=== PATIENT | male | born 1965 | race Caucasian/White ===

== ENCOUNTER 2018-10-18 14:22 | Inpatient (IN) | payer BC, OTHER ==
[2018-10-18] MEDS ORDERED: SODIUM CHLORIDE 0.9% 1,000 ML IV ONE ×2 (14:40→16:21)
[2018-10-18] MEDS ORDERED: SODIUM CHLORIDE 0.9% 500 ML 500 ML IV ONE (14:40)
--- NOTE | 2018-10-18 14:54 | ED ---
Psych HPI <Rickie Campos - Last Filed: 10/18/18 18:05> - General Source: patient, police Mode of arrival: ambulatory <Guillermina Hagan - Last Filed: 10/18/18 18:36> - General Chief Complaint: Psychiatric Symptoms Stated Complaint: mental health Time Seen by Provider: 10/18/18 14:31 - History of Present Illness Initial Comments: 53-year-old male past medical history of hypertension, previous alcohol abuse with history of cirrhosis of the liver presenting today as brought in by family for behavioral abnormalities. Family states the past 3 weeks patient has been very paranoid and has had bizarre conversations. The patient has been speaking of serpents, knocking on random doors. He has been speaking very religiously wh ich is unlike the patient. They feel he is delusional. He tore of the carpeting in their home and set it in front of the home, they are unsure why he is doing these things. Today patient locked himself in the bathroom for 5 hours, prompting family to bring him to the ER. Pt did have episode of vomiting today. Patient has no complaints upon arrival, keenly responsive, alert oriented x3. HR 135 and BP elevated. Pt is cooperative, no signs of agitation. Family will petition patient for psychiatric evaluation/admission pending medical clearance. Family has noted significant weight loss in the past month. Family states patient has not had alcohol in the past year. Family states patient does have history of depression and has been on psychiatric medications the past however patient is noncompliant. (Guillermina Hagan) - Related Data Home Medications Medication Instructions Recorded Confirmed No Known Home Medications 10/18/18 10/18/18 Allergies Allergy/AdvReac Type Severity Reaction Status Date / Time No Known Allergies Allergy Verified 10/18/18 16:56 Review of Systems ROS Other: All systems not noted in ROS Statement are negative. <Rickie Campos - Last Filed: 10/18/18 18:05> ROS Other: All systems not noted in ROS Statement are negative. <Guillermina Hagan - Last Filed: 10/18/18 18:36> ROS Statement: Those systems with pertinent positive or pertinent negative responses have been documented in the HPI. Past Medical History Past Medical History: Hypertension History of Any Multi-Drug Resistant Organisms: None Reported Past Surgical History: Orthopedic Surgery Past Psychological History: No Psychological Hx Reported Smoking Status: Current every day smoker Past Alcohol Use History: None Reported Past Drug Use History: Marijuana <Guillermina Hagan - Last Filed: 10/18/18 18:36> General Exam Limitations: no limitations <Guillermina Hagan - Last Filed: 10/18/18 18:36> - General Exam Comments Initial Comments: General: The patient is awake and alert, in no distress. Patient appears thin. Eye: +3 mm pupils are equal, round and reactive to light, extra-ocular movements are intact. No nystagmus. There is normal conjunctiva bilaterally. No signs of icterus. Ears, nose, mouth and throat: There are moist mucous membranes and no oral lesions. Neck: The neck is supple, there is no tenderness or JVD. Cardiovascular: There is a increased rate and rhythm. No murmur, rub or gallop is appreciated. Respiratory: Lungs are clear to auscultation, respirations are non-labored, breath sounds are equal. No wheezes, stridor, rales, or rhonchi. Gastrointestinal: Soft, non-distended, non-tender abdomen without masses or organomegaly noted. There is no rebound or guarding present. No CVA tenderness. Bowel sounds are unremarkable. Musculoskeletal: Normal ROM, no tenderness. Strength 5/5. Sensation intact. Radial pulses equal bilaterally 2+. Neurological: A&O x 3. CN II-XII intact, There are no obvious motor or sensory deficits. Coordination appears grossly intact. Speech is normal. Skin: Skin is warm and dry and no rashes or lesions are noted. Psychiatric: Cooperative. (Guillermina Hagan) Course <Guillermina Hagan - Last Filed: 10/18/18 18:36> Vital Signs 10/18/18 10/18/18 10/18/18 14:24 15:21 15:30 Temperature 97.4 F L Pulse Rate 135 H 122 H 113 H Respiratory 18 17 18 Rate Blood Pressure 164/112 163/106 O2 Sat by Pulse 98 99 98 Oximetry 10/18/18 10/18/18 10/18/18 15:40 15:50 16:00 Temperature Pulse Rate 113 H 116 H Respiratory 23 8 L 11 L Rate Blood Pressure 158/110 172/108 172/108 O2 Sat by Pulse 99 97 97 Oximetry 10/18/18 10/18/18 10/18/18 16:10 16:20 16:30 Temperature Pulse Rate 115 H 126 H Respiratory 17 15 28 H Rate Blood Pressure 154/110 161/108 161/108 O2 Sat by Pulse 97 97 96 Oximetry 10/18/18 10/18/18 10/18/18 16:40 16:50 17:00 Temperature Pulse Rate 121 H 121 H 110 H Respiratory 18 21 9 L Rate Blood Pressure 186/103 160/124 160/124 O2 Sat by Pulse 97 97 98 Oximetry 10/18/18 10/18/18 10/18/18 17:10 17:20 17:30 Temperature Pulse Rate 123 H 110 H 120 H Respiratory 7 L 14 13 Rate Blood Pressure 146/101 142/94 142/94 O2 Sat by Pulse 97 96 97 Oximetry 10/18/18 10/18/18 10/18/18 17:40 17:50 18:00 Temperature Pulse Rate 111 H 112 H 108 H Respiratory 47 H 18 13 Rate Blood Pressure 165/94 164/127 164/127 O2 Sat by Pulse 97 96 97 Oximetry 10/18/18 18:10 Temperature Pulse Rate 108 H Respiratory 18 Rate Blood Pressure 153/106 O2 Sat by Pulse 97 Oximetry - Reevaluation(s) Reevaluation #1: Patient was evaluated in person by attending provider Dr. Campos. He reviewed patient EKG and assessed patient. Pt AAOx3. Appearing well, lactic acid and urinalysis pending. 10/18/18 16:12 (Guillermina Hagan) Medical Decision Making - Lab Data Result diagrams: 10/18/18 15:00 10/18/18 15:00 <Rickie Campos - Last Filed: 10/18/18 18:05> - Lab Data Result diagrams: 10/18/18 15:00 10/18/18 15:00 <Guillermina Hagan - Last Filed: 10/18/18 18:36> - Medical Decision Making Patient case was discussed with Dr. Funez who felt the patient was appropriate for psychiatric admission despite tachycardia. Repeat lactic acid level was obtained with improvement of findings. (Rickie Campos) 53yo male presenting for psychosis. Pt family states he has had depression and takes medications usually however has been off of his medications for weeks. Pt has history of liver disease, states he has had cirrhosis in the past. Pt has not had ETOH to family knowledge in 1 year. Pt does not appear intoxicated upon arrival. Pt family complaints are delusional/paranoid thoughts, patient denies visual or auditory hallucinations. Pt is AAOx3 upon arrival, keenly alert, family and patient deny infectious symptoms knowledge. Physical examination unremarkable. No focal neurological deficits. No nuchal rigidity or meningeal irritation signs. No leukocytosis. No focal signs of infection. Urine unremarkable. CT brain wo contrast WNL. CXR WNL. Lungs clear. Pt appears well. Afebrile. Pt states he has home stressors otherwise ROS (-), pt petitioned by family. Pt was evaluated by attending provider Dr. Campos who reviewed EKG, and patient laboratory studies. Lactic acidosis present. Pt has history of ETOH abuse and liver cirrhosis. No abdominal distention. Pt appears dry on exam. Pt given IVF. Repeat lactic WNL. Pt continues to have elevated HR. Pt provided BP medications in the ER. Dr. Funez was contacted for medical admit for sustained tachycardia. He recommended psych admit with medicine on consult. Pt admitted to psychiatric floor after certified by Dr. Campos and evaluated by EPS. Dr. Campos is agreeable with admission to hospital with both psychiatric and further medical evaluation. Findings were discussed with family who are agreeable with admission. Pt does have pyschiatric history of depression and is off all medications. (Guillermina Hagan) - Lab Data Lab Results 10/18/18 10/18/18 10/18/18 Range/Units 15:00 15:00 15:00 WBC 9.3 (3.8-10.6) k/uL RBC 4.54 (4.30-5.90) m/uL Hgb 13.8 (13.0-17.5) gm/dL Hct 43.1 (39.0-53.0) % MCV 94.9 (80.0-100.0) fL MCH 30.5 (25.0-35.0) pg MCHC 32.1 (31.0-37.0) g/dL RDW 13.7 (11.5-15.5) % Plt Count 307 (150-450) k/uL Neutrophils % 80 % Lymphocytes % 14 % Monocytes % 4 % Eosinophils % 0 % Basophils % 0 % Neutrophils # 7.4 (1.3-7.7) k/uL Lymphocytes # 1.3 (1.0-4.8) k/uL Monocytes # 0.4 (0-1.0) k/uL Eosinophils # 0.0 (0-0.7) k/uL Basophils # 0.0 (0-0.2) k/uL PT (9.0-12.0) sec INR (<1.2) APTT (22.0-30.0) sec Carbon Monoxide, Quant (<10.0) % Sodium 138 (137-145) mmol/L Potassium 3.7 (3.5-5.1) mmol/L Chloride 102 (98-107) mmol/L Carbon Dioxide 21 L (22-30) mmol/L Anion Gap 15 mmol/L BUN 13 (9-20) mg/dL Creatinine 1.14 (0.66-1.25) mg/dL Est GFR (CKD-EPI)AfAm 84 (>60 ml/min/1.73 sqM) Est GFR (CKD-EPI)NonAf 72 (>60 ml/min/1.73 sqM) Glucose 217 H (74-99) mg/dL Plasma Lactic Acid Dejon (0.7-2.0) mmol/L Calcium 10.5 H (8.4-10.2) mg/dL Total Bilirubin 1.1 (0.2-1.3) mg/dL AST 27 (17-59) U/L ALT 25 (21-72) U/L Alkaline Phosphatase 74 (38-126) U/L Ammonia (<30) umol/L Creatine Kinase 89 (55-170) U/L CK-MB (CK-2) 1.8 (0.0-2.4) ng/mL Troponin I <0.012 (0.000-0.034) ng/mL Total Protein 8.0 (6.3-8.2) g/dL Albumin 5.1 H (3.5-5.0) g/dL Lipase (23-300) U/L Urine Color Urine Appearance (Clear) Urine pH (5.0-8.0) Ur Specific [place] (1.001-1.035) Urine Protein (Negative) Urine Glucose (UA) (Negative) Urine Ketones (Negative) Urine Blood (Negative) Urine Nitrite (Negative) Urine Bilirubin (Negative) Urine Urobilinogen (<2.0) mg/dL Ur Leukocyte Esterase (Negative) Urine Opiates Screen (NotDetected) Ur Oxycodone Screen (NotDetected) Urine Methadone Screen (NotDetected) Ur Propoxyphene Screen (NotDetected) Ur Barbiturates Screen (NotDetected) U Tricyclic Antidepress (NotDetected) Ur Phencyclidine Scrn (NotDetected) Ur Amphetamines Screen (NotDetected) U Methamphetamines Scrn (NotDetected) U Benzodiazepines Scrn (NotDetected) Urine Cocaine Screen (NotDetected) U Marijuana (THC) Screen (NotDetected) Acetone, Qual (Negative) 10/18/18 10/18/18 10/18/18 Range/Units 15:00 15:00 15:00 WBC (3.8-10.6) k/uL RBC (4.30-5.90) m/uL Hgb (13.0-17.5) gm/dL Hct (39.0-53.0) % MCV (80.0-100.0) fL MCH (25.0-35.0) pg MCHC (31.0-37.0) g/dL RDW (11.5-15.5) % Plt Count (150-450) k/uL Neutrophils % % Lymphocytes % % Monocytes % % Eosinophils % % Basophils % % Neutrophils # (1.3-7.7) k/uL Lymphocytes # (1.0-4.8) k/uL Monocytes # (0-1.0) k/uL Eosinophils # (0-0.7) k/uL Basophils # (0-0.2) k/uL PT 10.3 (9.0-12.0) sec INR 1.0 (<1.2) APTT 27.1 (22.0-30.0) sec Carbon Monoxide, Quant (<10.0) % Sodium (137-145) mmol/L Potassium (3.5-5.1) mmol/L Chloride (98-107) mmol/L Carbon Dioxide (22-30) mmol/L Anion Gap mmol/L BUN (9-20) mg/dL Creatinine (0.66-1.25) mg/dL Est GFR (CKD-EPI)AfAm (>60 ml/min/1.73 sqM) Est GFR (CKD-EPI)NonAf (>60 ml/min/1.73 sqM) Glucose (74-99) mg/dL Plasma Lactic Acid Dejon (0.7-2.0) mmol/L Calcium (8.4-10.2) mg/dL Total Bilirubin (0.2-1.3) mg/dL AST (17-59) U/L ALT (21-72) U/L Alkaline Phosphatase (38-126) U/L Ammonia 11 (<30) umol/L Creatine Kinase (55-170) U/L CK-MB (CK-2) (0.0-2.4) ng/mL Troponin I (0.000-0.034) ng/mL Total Protein (6.3-8.2) g/dL Albumin (3.5-5.0) g/dL Lipase (23-300) U/L Urine Color Urine Appearance (Clear) Urine pH (5.0-8.0) Ur Specific [place] (1.001-1.035) Urine Protein (Negative) Urine Glucose (UA) (Negative) Urine Ketones (Negative) Urine Blood (Negative) Urine Nitrite (Negative) Urine Bilirubin (Negative) Urine Urobilinogen (<2.0) mg/dL Ur Leukocyte Esterase (Negative) Urine Opiates Screen (NotDetected) Ur Oxycodone Screen (NotDetected) Urine Methadone Screen (NotDetected) Ur Propoxyphene Screen (NotDetected) Ur Barbiturates Screen (NotDetected) U Tricyclic Antidepress (NotDetected) Ur Phencyclidine Scrn (NotDetected) Ur Amphetamines Screen (NotDetected) U Methamphetamines Scrn (NotDetected) U Benzodiazepines Scrn (NotDetected) Urine Cocaine Screen (NotDetected) U Marijuana (THC) Screen (NotDetected) Acetone, Qual Negative (Negative) 10/18/18 10/18/18 10/18/18 Range/Units 15:00 15:37 15:52 WBC (3.8-10.6) k/uL RBC (4.30-5.90) m/uL Hgb (13.0-17.5) gm/dL Hct (39.0-53.0) % MCV (80.0-100.0) fL MCH (25.0-35.0) pg MCHC (31.0-37.0) g/dL RDW (11.5-15.5) % Plt Count (150-450) k/uL Neutrophils % % Lymphocytes % % Monocytes % % Eosinophils % % Basophils % % Neutrophils # (1.3-7.7) k/uL Lymphocytes # (1.0-4.8) k/uL Monocytes # (0-1.0) k/uL Eosinophils # (0-0.7) k/uL Basophils # (0-0.2) k/uL PT (9.0-12.0) sec INR (<1.2) APTT (22.0-30.0) sec Carbon Monoxide, Quant (<10.0) % Sodium (137-145) mmol/L Potassium (3.5-5.1) mmol/L Chloride (98-107) mmol/L Carbon Dioxide (22-30) mmol/L Anion Gap mmol/L BUN (9-20) mg/dL Creatinine (0.66-1.25) mg/dL Est GFR (CKD-EPI)AfAm (>60 ml/min/1.73 sqM) Est GFR (CKD-EPI)NonAf (>60 ml/min/1.73 sqM) Glucose (74-99) mg/dL Plasma Lactic Acid Dejon 4.4 H* (0.7-2.0) mmol/L Calcium (8.4-10.2) mg/dL Total Bilirubin (0.2-1.3) mg/dL AST (17-59) U/L ALT (21-72) U/L Alkaline Phosphatase (38-126) U/L Ammonia (<30) umol/L Creatine Kinase (55-170) U/L CK-MB (CK-2) (0.0-2.4) ng/mL Troponin I (0.000-0.034) ng/mL Total Protein (6.3-8.2) g/dL Albumin (3.5-5.0) g/dL Lipase 162 (23-300) U/L Urine Color Light Yellow Urine Appearance Clear (Clear) Urine pH 7.0 (5.0-8.0) Ur Specific [place] 1.004 (1.001-1.035) Urine Protein Trace H (Negative) Urine Glucose (UA) Negative (Negative) Urine Ketones Negative (Negative) Urine Blood Negative (Negative) Urine Nitrite Negative (Negative) Urine Bilirubin Negative (Negative) Urine Urobilinogen <2.0 (<2.0) mg/dL Ur Leukocyte Esterase Negative (Negative) Urine Opiates Screen Not Detected (NotDetected) Ur Oxycodone Screen Not Detected (NotDetected) Urine Methadone Screen Not Detected (NotDetected) Ur Propoxyphene Screen Not Detected (NotDetected) Ur Barbiturates Screen Not Detected (NotDetected) U Tricyclic Antidepress Not Detected (NotDetected) Ur Phencyclidine Scrn Not Detected (NotDetected) Ur Amphetamines Screen Not Detected (NotDetected) U Methamphetamines Scrn Not Detected (NotDetected) U Benzodiazepines Scrn Not Detected (NotDetected) Urine Cocaine Screen Not Detected (NotDetected) U Marijuana (THC) Screen Detected H (NotDetected) Acetone, Qual (Negative) 10/18/18 10/18/18 Range/Units 16:54 16:54 WBC (3.8-10.6) k/uL RBC (4.30-5.90) m/uL Hgb (13.0-17.5) gm/dL Hct (39.0-53.0) % MCV (80.0-100.0) fL MCH (25.0-35.0) pg MCHC (31.0-37.0) g/dL RDW (11.5-15.5) % Plt Count (150-450) k/uL Neutrophils % % Lymphocytes % % Monocytes % % Eosinophils % % Basophils % % Neutrophils # (1.3-7.7) k/uL Lymphocytes # (1.0-4.8) k/uL Monocytes # (0-1.0) k/uL Eosinophils # (0-0.7) k/uL Basophils # (0-0.2) k/uL PT (9.0-12.0) sec INR (<1.2) APTT (22.0-30.0) sec Carbon Monoxide, Quant 3.7 (<10.0) % Sodium (137-145) mmol/L Potassium (3.5-5.1) mmol/L Chloride (98-107) mmol/L Carbon Dioxide (22-30) mmol/L Anion Gap mmol/L BUN (9-20) mg/dL Creatinine (0.66-1.25) mg/dL Est GFR (CKD-EPI)AfAm (>60 ml/min/1.73 sqM) Est GFR (CKD-EPI)NonAf (>60 ml/min/1.73 sqM) Glucose (74-99) mg/dL Plasma Lactic Acid Dejon 1.7 (0.7-2.0) mmol/L Calcium (8.4-10.2) mg/dL Total Bilirubin (0.2-1.3) mg/dL AST (17-59) U/L ALT (21-72) U/L Alkaline Phosphatase (38-126) U/L Ammonia (<30) umol/L Creatine Kinase (55-170) U/L CK-MB (CK-2) (0.0-2.4) ng/mL Troponin I (0.000-0.034) ng/mL Total Protein (6.3-8.2) g/dL Albumin (3.5-5.0) g/dL Lipase (23-300) U/L Urine Color Urine Appearance (Clear) Urine pH (5.0-8.0) Ur Specific [place] (1.001-1.035) Urine Protein (Negative) Urine Glucose (UA) (Negative) Urine Ketones (Negative) Urine Blood (Negative) Urine Nitrite (Negative) Urine Bilirubin (Negative) Urine Urobilinogen (<2.0) mg/dL Ur Leukocyte Esterase (Negative) Urine Opiates Screen (NotDetected) Ur Oxycodone Screen (NotDetected) Urine Methadone Screen (NotDetected) Ur Propoxyphene Screen (NotDetected) Ur Barbiturates Screen (NotDetected) U Tricyclic Antidepress (NotDetected) Ur Phencyclidine Scrn (NotDetected) Ur Amphetamines Screen (NotDetected) U Methamphetamines Scrn (NotDetected) U Benzodiazepines Scrn (NotDetected) Urine Cocaine Screen (NotDetected) U Marijuana (THC) Screen (NotDetected) Acetone, Qual (Negative) - EKG Data EKG Comments: Ventricular rate 127 bpm, CA interval 142 ms, QRS duration 82 ms, QT/QTC 310/450 ms. Sinus tachycardia. evidence supporting biatrial enlargement. (Guillermina Hagan) Disposition <Rickie Campos - Last Filed: 10/18/18 18:05> Is patient prescribed a controlled substance at d/c from ED?: No Time of Disposition: 17:44 Decision to Admit Reason: Admit from EC Decision Date: 10/18/18 Decision Time: 17:44 <Guillermina Hagan - Last Filed: 10/18/18 18:36> Clinical Impression: Psychosis, Elevated heart rate with elevated blood pressure and diagnosis of hypertension, Lactic acidosis Disposition: ADMITTED IP TO THIS HOSP Condition: Serious Referrals: Jaylan Youngblood MD [Primary Care Provider] - 1-2 days
[2018-10-18 15:17] LABS: Basophils % (A) 0 %; Eosinophils % (A) 0 %; HCT 43.1 % (39.0-53.0); HGB 13.8 gm/dL (13.0-17.5); Lymphocytes # (A) 1.3 k/uL (1.0-4.8); Lymphocytes % (A) 14 %; MCH 30.5 pg (25.0-35.0); MCHC 32.1 g/dL (31.0-37.0); MCV 94.9 fL (80.0-100.0); Monocytes # (A) 0.4 k/uL (0-1.0); Monocytes % (A) 4 %; Neutrophils # (A) 7.4 k/uL (1.3-7.7); Neutrophils % (A) 80 %; Platelet Count 307 k/uL (150-450); RBC 4.54 m/uL (4.30-5.90); RDW 13.7 % (11.5-15.5); WBC 9.3 k/uL (3.8-10.6)
[2018-10-18 15:25] LABS: Albumin 5.1 g/dL (3.5-5.0); Calcium 10.5 mg/dL (8.4-10.2); Partial Thromboplastin Time 27.1 sec (22.0-30.0); Potassium 3.7 mmol/L (3.5-5.1); Prothrombin Time 10.3 sec (9.0-12.0); Total Bilirubin 1.1 mg/dL (0.2-1.3)
[2018-10-18] MEDS ORDERED: hydrALAZINE HCL 20 MG/ML 1 ML VIAL IVP STA ×2 (15:33→18:06)
--- NOTE | 2018-10-18 15:38 | CT ---
EXAMINATION TYPE: CT brain wo con DATE OF EXAM: 10/18/2018 COMPARISON: None HISTORY: Altered mental status. CT DLP: 1145.4 mGycm Automated exposure control for dose reduction was used. FINDINGS: There is cerebral cortical atrophy. There is no mass effect nor midline shift. There is no sign of in tracranial hemorrhage. Calvarium is intact. IMPRESSION: CEREBRAL ATROPHY. NO ACUTE INTRACRANIAL ABNORMALITY.
--- NOTE | 2018-10-18 15:39 | XR ---
EXAMINATION TYPE: XR chest 2V DATE OF EXAM: 10/18/2018 COMPARISON: NONE HISTORY: Altered mental status TECHNIQUE: Frontal and lateral views of the chest are obtained. FINDINGS: There is pulmonary hyperinflation with flattening of the diaphragm. Heart and mediastinum are normal. Bony thorax is intact. IMPRESSION: COPD. No acute lung disease. Normal heart.
[2018-10-18 15:42] LABS: Creatine Kinase MB 1.8 ng/mL (0.0-2.4); Troponin I <0.012 ng/mL (0.000-0.034)
[2018-10-18 16:12] LABS: Appearance,Urine Clear (Clear); Bilirubin,Urine Negative (Negative); Blood,Urine Negative (Negative); Color,Urine Light Yellow; Glucose,Urine (UA) Negative (Negative); Ketones,Urine Negative (Negative); Leukocyte Esterase,Urine Negative (Negative); Nitrite,Urine Negative (Negative); Protein,Urine Trace (Negative); Specific Gravity,Urine 1.004 (1.001-1.035); Urobilinogen,Urine <2.0 mg/dL (<2.0)
[2018-10-18 16:20] LABS: Amphetamine Screen,Urine Not Detected (NotDetected); Barbiturate Screen,Urine Not Detected (NotDetected); Benzodiazepines Screen,Urine Not Detected (NotDetected); Cocaine Screen,Urine Not Detected (NotDetected); Methadone Screen, Urine Not Detected (NotDetected); Opiate Screen,Urine Not Detected (NotDetected); Oxycodone Screen, Urine Not Detected (NotDetected); Phencyclidine Screen,Urine Not Detected (NotDetected); Tricyclic Antidepressant,Urine Not Detected (NotDetected); Urn Cannabinoid Scrn Detected (NotDetected)
[2018-10-18] MEDS ORDERED: NALOXONE 0.4 MG/ML 1 ML VIAL IV PRN (17:44)
[2018-10-18] MEDS ORDERED: LORazepam 1 MG TAB PO PRN (19:02)
[2018-10-18] MEDS ORDERED: ACETAMINOPHEN TAB 325 MG TAB PO PRN (19:02)
[2018-10-18] MEDS ORDERED: MAG HYDROX/AL HYDROX/SIMETH 30 ML CUP PO PRN (19:02)
[2018-10-18] MEDS ORDERED: MAGNESIUM HYDROXIDE 2,400 MG/10 ML CUP PO PRN (19:02)
[2018-10-18] MEDS ORDERED: ZIPRASIDONE 20 MG VIAL IM PRN (19:02)
[2018-10-18] MEDS ORDERED: LORazepam 2 MG/ML INJ IM PRN (19:04)
[2018-10-18] MEDS ORDERED: IOPAMIDOL-300 CONTRAST 30 ML VIAL (ORAL USE) PO PRN (22:00)
[2018-10-18] MEDS ORDERED: NICOTINE POLACRILEX 2 MG GUM BUCCAL PRN (22:01)
[2018-10-19] MEDS ORDERED: ZIPRASIDONE 20 MG VIAL IM PRN (01:03)
--- NOTE | 2018-10-19 05:01 | CONS ---
CONSULTATION DATE OF CONSULTATION: 10/18/2018 PRESENTING COMPLAINT: Delusional. HISTORY OF PRESENTING COMPLAINT: This is a pleasant 53-year-old patient who follows with Dr. Youngblood. The patient is brought to the ER after petition by his that the patient is being delusional, is having behavior abnormalities and family stating that in the past 3 weeks in the ER, patient having become very paranoid, having these bizarre conversations. The patient has been talking about serpents knocking on random doors and usually speaking very religiously, which is unlike the patient. The patient took all the carpeting in their home and sat it in the front of their home. The patient also locked himself in the bathroom for 5 hours and then family brought him to the ER. The patient's family did petition him for psychiatric evaluation. According to the patient, he had lost weight over the course of last 5 months. Appetite is not good, but he eats what his makes. 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 The patient does like to drive around. Patient denies any cough or hemoptysis. REVIEW OF SYSTEMS: CONSTITUTIONAL: Loss of weight, loss of appetite. HEENT none. RESPIRATORY: Occasional cough. CARDIOVASCULAR: No chest pain or palpitation. GENITOURINARY: None. MUSCULOSKELETAL: None. DERMATOLOGIC: None. HEMATOLOGIC: None. LYMPHATIC: None. PSYCHIATRY: Denies any depression or anxiety. NEUROLOGICAL: None. PAST MEDICAL HISTORY: Hypertension. SURGICAL HISTORY: Orthopedic surgery. SOCIAL HISTORY: Smokes about a pack a day. The patient was taken off replaced in his job. , some marijuana. Alcohol in the past, amount unknown. MEDICATIONS: Home medication: Not taking medications. PHYSICAL EXAMINATION: VITAL SIGNS: On examination: Temperature 97.4, pulse 135, respiratory rate 18, blood pressure 164/112, pulse ox 98% on room air. GENERAL APPEARANCE: Thin built. BMI 17. Sitting up. EYES: Pupils equal. Conjunctivae normal. HEENT: External appearance of nose and ears normal. Oral cavity normal. NECK: JVD not raised. Mass not palpable. RESPIRATORY: Effort normal. LUNGS: Diminished breath sounds. CARDIOVASCULAR: First and second sounds normal. No edema. ABDOMEN: Soft, nontender. Liver and spleen not palpable. LYMPHATICS: No lymph nodes palpable in neck or axillae. PSYCHIATRY: Alert and oriented x3. Mood and affect normal. NEUROLOGICAL: Pupils equal. Cranial nerves grossly intact. Some tremors are present. INVESTIGATIONS: White count 9.3, hemoglobin 17.8, potassium 3.7, BUN and creatinine is normal. Serum lactic acid 4.4, repeat 1.7, calcium 10.5. EKG tracing personally reviewed by me shows sinus tachycardia with P-pulmonale. CT scan of the brain shows some cerebral atrophy. Chest x-ray film, personally reviewed by me shows hyperinflation. ASSESSMENT: 1. Chronic obstructive pulmonary disease/emphysema in a current cigarette smoker. 2. Chronic nicotine dependence. Patient is a cigarette smoker. 3. Lactic acidosis, type B in this current situation is not indication of any infection. 4. Mild to moderate protein-calorie malnutrition from decreased oral intake, loss of muscle mass, bony prominences. 5. Loss of appetite, weight loss in the smoker, need to rule out malignancy. This could be worked up as an outpatient. We will assess patient in the hospital, will proceed with getting a CT scan done here. 6. Rule out hyperthyroidism. 7. Sinus tachycardia. PLAN: Will get a CT scan of the chest, abdomen and pelvis with contrast. Thyroid functions have been ordered. The patient to be encouraged oral intake. Will have a dietitian see the patient for increased oral intake and also give Ensure. Care was discussed with the patient. Further psychiatry evaluation as per Dr. Carias. Thank you Dr. Carias. Copy to Dr. Youngblood. MMODL / YULIYAN: [id number] /
[2018-10-19] MEDS: NICOTINE 14MG/24HR PATCH TRANSDERM SCH ×2 (09:15→09:16)
[2018-10-19 13:39] VITALS: BMI 16.9
--- NOTE | 2018-10-19 15:56 | P.HP ---
Psychiatric H&P - . H&P Date: 10/19/18 History & Physical: Allergies Allergy/AdvReac Type Severity Reaction Status Date / Time No Known Allergies Allergy Verified 10/18/18 16:56 Vital Signs Temp 98.2 F 10/19/18 01:45 Pulse 106 H 10/19/18 05:39 Resp 14 10/19/18 01:45 BP 107/73 10/19/18 05:39 Pulse Ox 97 10/19/18 05:39 Intake & Output 10/18/18 10/19/18 10/19/18 18:59 06:59 18:59 Intake Total 1500 Balance 1500 Weight 46.357 kg Intake: Amount of Fluid Infused ( 1500 ml) Laboratory Last Values WBC 9.3 k/uL (3.8-10.6) 10/18/18 15:00 RBC 4.54 m/uL (4.30-5.90) 10/18/18 15:00 Hgb 13.8 gm/dL (13.0-17.5) 10/18/18 15:00 Hct 43.1 % (39.0-53.0) 10/18/18 15:00 MCV 94.9 fL (80.0-100.0) 10/18/18 15:00 MCH 30.5 pg (25.0-35.0) 10/18/18 15:00 MCHC 32.1 g/dL (31.0-37.0) 10/18/18 15:00 RDW 13.7 % (11.5-15.5) 10/18/18 15:00 Plt Count 307 k/uL (150-450) 10/18/18 15:00 Neutrophils % 80 % 10/18/18 15:00 Lymphocytes % 14 % 10/18/18 15:00 Monocytes % 4 % 10/18/18 15:00 Eosinophils % 0 % 10/18/18 15:00 Basophils % 0 % 10/18/18 15:00 Neutrophils # 7.4 k/uL (1.3-7.7) 10/18/18 15:00 Lymphocytes # 1.3 k/uL (1.0-4.8) 10/18/18 15:00 Monocytes # 0.4 k/uL (0-1.0) 10/18/18 15:00 Eosinophils # 0.0 k/uL (0-0.7) 10/18/18 15:00 Basophils # 0.0 k/uL (0-0.2) 10/18/18 15:00 PT 10.3 sec (9.0-12.0) 10/18/18 15:00 INR 1.0 (<1.2) 10/18/18 15:00 APTT 27.1 sec (22.0-30.0) 10/18/18 15:00 Carbon Monoxide, Quant 3.7 % (<10.0) 10/18/18 16:54 Sodium 138 mmol/L (137-145) 10/18/18 15:00 Potassium 3.7 mmol/L (3.5-5.1) 10/18/18 15:00 Chloride 102 mmol/L (98-107) 10/18/18 15:00 Carbon Dioxide 21 mmol/L (22-30) L 10/18/18 15:00 Anion Gap 15 mmol/L 10/18/18 15:00 BUN 13 mg/dL (9-20) 10/18/18 15:00 Creatinine 1.14 mg/dL (0.66-1.25) 10/18/18 15:00 Est GFR (CKD-EPI)AfAm 84 (>60 ml/min/1.73 sqM) 10/18/18 15:00 Est GFR (CKD-EPI)NonAf 72 (>60 ml/min/1.73 sqM) 10/18/18 15:00 Glucose 217 mg/dL (74-99) H 10/18/18 15:00 Lactic Ac Sepsis Rflx Y 10/18/18 16:20 Plasma Lactic Acid Dejon 2.5 mmol/L (0.7-2.0) H* 10/18/18 20:26 Calcium 10.5 mg/dL (8.4-10.2) H 10/18/18 15:00 Total Bilirubin 1.1 mg/dL (0.2-1.3) 10/18/18 15:00 AST 27 U/L (17-59) 10/18/18 15:00 ALT 25 U/L (21-72) 10/18/18 15:00 Alkaline Phosphatase 74 U/L (38-126) 10/18/18 15:00 Ammonia 11 umol/L (<30) 10/18/18 15:00 Creatine Kinase 89 U/L (55-170) 10/18/18 15:00 CK-MB (CK-2) 1.8 ng/mL (0.0-2.4) 10/18/18 15:00 Troponin I <0.012 ng/mL (0.000-0.034) 10/18/18 15:00 Total Protein 8.0 g/dL (6.3-8.2) 10/18/18 15:00 Albumin 5.1 g/dL (3.5-5.0) H 10/18/18 15:00 Lipase 162 U/L (23-300) 10/18/18 15:37 TSH 3.250 mIU/L (0.465-4.680) 10/18/18 20:26 Urine Color Light Yellow 10/18/18 15:52 Urine Appearance Clear (Clear) 10/18/18 15:52 Urine pH 7.0 (5.0-8.0) 10/18/18 15:52 Ur Specific [place] 1.004 (1.001-1.035) 10/18/18 15:52 Urine Protein Trace (Negative) H 10/18/18 15:52 Urine Glucose (UA) Negative (Negative) 10/18/18 15:52 Urine Ketones Negative (Negative) 10/18/18 15:52 Urine Blood Negative (Negative) 10/18/18 15:52 Urine Nitrite Negative (Negative) 10/18/18 15:52 Urine Bilirubin Negative (Negative) 10/18/18 15:52 Urine Urobilinogen <2.0 mg/dL (<2.0) 10/18/18 15:52 Ur Leukocyte Esterase Negative (Negative) 10/18/18 15:52 Urine Opiates Screen Not Detected (NotDetected) 10/18/18 15:52 Ur Oxycodone Screen Not Detected (NotDetected) 10/18/18 15:52 Urine Methadone Screen Not Detected (NotDetected) 10/18/18 15:52 Ur Propoxyphene Screen Not Detected (NotDetected) 10/18/18 15:52 Ur Barbiturates Screen Not Detected (NotDetected) 10/18/18 15:52 U Tricyclic Antidepress Not Detected (NotDetected) 10/18/18 15:52 Ur Phencyclidine Scrn Not Detected (NotDetected) 10/18/18 15:52 Ur Amphetamines Screen Not Detected (NotDetected) 10/18/18 15:52 U Methamphetamines Scrn Not Detected (NotDetected) 10/18/18 15:52 U Benzodiazepines Scrn Not Detected (NotDetected) 10/18/18 15:52 Urine Cocaine Screen Not Detected (NotDetected) 10/18/18 15:52 U Marijuana (THC) Screen Detected (NotDetected) H 10/18/18 15:52 Acetone, Qual Negative (Negative) 10/18/18 15:00 Assessment and Plan Assessment: 53-year-old male past medical history of hypertension, previous alcohol abuse with history of cirrhosis of the liver presenting today as brought in by family for behavioral abnormalities. Family states the past 3 weeks patient has been very paranoid and has had bizarre conversations. The patient has been speaking of serpents, knocking on random doors. He has been speaking very religiously which is unlike the patient. They feel he is delusional. He tore of the carpeting in their home and set it in front of the home, they are unsure why he is doing these things. Today patient locked himself in the bathroom for 5 hours, prompting family to bring him to the ER. Pt did have episode of vomiting today. Patient has no complaints upon arrival, keenly responsive, alert oriented x3. HR 135 and BP elevated. Pt is cooperative, no signs of agitation. Family will petition patient for psychiatric evaluation/admission pending medical clearance. Family has noted significant weight loss in the past month. Family states patient has not had alcohol in the past year. Family states patient does have history of depression and has been on psychiatric medications the past however patient is noncompliant. Pt was brought into the hospital by police after family became concerned due to his irratic behavior. He was petitioned and certed. Pt was incoherent upon admit. Family states that he has not been acting like himself lately. He has been sitting in a chair with a gun in a holster, he ripped out good carpeting, he wanders at night, and is not able to communicate properly with his family. When they asked him to go to the hospital, he became resistive and they called the police. Family stated they were in fear of him and thought he was a harm to himself and others.pt does admit to having quite a few stresses in his life lately including deaths. He said he has not been sleeping much lately and he thinks that might be the problem lives with daughter and son in law. - Related Data Home Medications Medication Instructions Recorded Confirmed No Known Home Medications 10/18/18 10/18/18 Allergies Allergy/AdvReac Type Severity Reaction Status Date / Time No Known Allergies Allergy Verified 10/18/18 16:56 Past Medical History Past Medical History: Hypertension History of Any Multi-Drug Resistant Organisms: None Reported Past Surgical History: Orthopedic Surgery Past Psychological History: No Psychological Hx Reported Smoking Status: Current every day smoker Past Alcohol Use History: None Reported Past Drug Use History: Marijuana Musculoskeletal Examination - Abnormal/Involuntary Movements: [none Strength: [greater than antigravity (greater than/equal to 3/5) in all extremities Muscle Tone: [no impairment Gait: [grossly normal Station: [grossly normal : Mental Status Examination - General Appearance: [ casual, appears stated age Speech/Language: [spontaneous, soft Attitude/Behavior: [cooperative Mood: [ depressed, anxious, Affect: [full range Orientation: [time, person, place situation] Thought Content: [wnl Risk Factors: [denies suicidal (ideations, plan) Perception: [wnl, denies hallucinations (auditory, visual, tactile), other] Thought Processes: [goal-oriented Concentration/Attention Span: [wnl] [Per observation and interview with the patient] Recent Memory: [wnl] [ 3 out of 3 in 3 minutes] Remote Memory: [wnl] [past events, as related history] Intelligence: [ average] [based on history, based on vocabulary, syntax, grammar, and content] Judgement: [good] [per patient's behavior/history of present illness] Insight: [good] [understanding severity of illness/history of present illness] Admitting Diagnosis: [adjustment disorder] Patient Strengths - Personal Skills: [x] Achievements: [x] Steady employment/financial stability: [x] Housing stability: [x] Able to vocalize needs: [x] Values and traditions: [x] Motivation, determination, readiness for change: [x] Setting and pursuing goals, hopes, dreams, aspirations: [x] Patient Limitations: [ ] Initial Plan of Care: [He was admitted on a formal voluntary admission to [facility] for what appeared to be adjustment disorder due to mcc and handling able to estate. He'll be evaluated by medicine, psychiatry, nursing staff, social work and occupational therapy and be integrated in tsai milieu. Environment. A family meeting will be scheduled to evaluate the dynamics of the home situation and possible stresses identifiers. I did not really meet criteria for involuntary and agreed for voluntary admission for evaluation.] Estimated Length of Stay: [3 days] Initial Discharge Plan: [home Prognosis: [good] J (1) Major depressive disorder Current Visit: Yes Status: Acute Code(s): F32.9 - MAJOR DEPRESSIVE DISORDER, SINGLE EPISODE, UNSPECIFIED SNOMED Code(s): 319682245 Time with Patient: Less than 30
[2018-10-19 19:26] LABS: Hemoglobin A1C 5.5 % (4.0-6.0)
[2018-10-19] MEDS ORDERED: SERTRALINE 25 MG TAB PO SCH (21:00)
[2018-10-19] MEDS ORDERED: PRAMIPEXOLE 0.5 MG TAB PO SCH (21:00)
--- NOTE | 2018-10-20 04:36 | PN ---
PROGRESS NOTE Note, the patient's thyroid function came back normal. Discussed with Dr. Carias. The patient will have CT scan of the chest, abdomen and pelvis with contrast as an outpatient and this can be followed up by Dr. Youngblood. Copy of dictation to Dr. Youngblood. MMEVONL / IJN: [id number] /
[2018-10-20 07:00] VITALS: RESP 18
[2018-10-20] MEDS: NICOTINE 14MG/24HR PATCH TRANSDERM SCH (09:37)
[2018-10-20 11:35] LABS: ALT 28 U/L (21-72); AST 33 U/L (17-59); Albumin 4.4 g/dL (3.5-5.0); Alkaline Phosphatase 54 U/L (38-126); Anion Gap 7 mmol/L; Blood Urea Nitrogen 27 mg/dL (9-20); Calcium 9.9 mg/dL (8.4-10.2); Carbon Dioxide 30 mmol/L (22-30); Chloride 104 mmol/L (98-107); Glucose 91 mg/dL (74-99); Potassium 4.4 mmol/L (3.5-5.1); Sodium 141 mmol/L (137-145); Total Bilirubin 0.8 mg/dL (0.2-1.3); Total Protein 6.9 g/dL (6.3-8.2)
--- NOTE | 2018-10-20 16:17 | PN ---
PROGRESS NOTE DATE OF SERVICE: 10/20/2018 CHIEF COMPLAINT: The patient had 3 weeks of paranoid thinking, having bizarre conversations, knocking on doors randomly and having disorganized behavior. INTERVAL HISTORY: The patient had a quiet evening last night. He only slept one hour by staff observation. Nursing documented the following: "Patient could be found either in the bathroom just standing or on bed praying and rocking or sitting still with his hand shaped like a gun resting in his leg. Patient smiles inappropriately. Patient seems to be disorganized. This morning he has mostly been in his room. He comes out for meals. He has not attended groups. He spends most of his time in his room. When I went to his room to have him come down to the office, he was sitting on the edge of the bed. He had his hands clasped together in an apparent prayer posture. His eyes were closed. He seemed to be mumbling something quite softly. When I asked him to come down to the office, he then slowly moved and was able to come down to speak. He said he was doing "fine." He says the biggest issue may relate to just feeling distressed over issues such as having retired, needing to sell his parents' home and dealing with the of his older brother. When I reviewed what was documented in the chart, the patient suggested that some of it may be biased and not accurate, though he also suggested that some was probably appropriately documented. He was able to say that both his and his biologic daughter had been expressing concerns about how he was doing. He could not really identify issues over the last several weeks that may have intensified issues he had. He has not had any past mental health intervention. When I talked to the patient about medications, he did not seem to be inclined to start any medicine. MENTAL STATUS: Patient sat with some restlessness. Eye contact was fair. He answered questions with brief responses. His thoughts were clear and coherent. He did tend to give vague answers without much detail. He had a constricted affect. He did seem to smile to some extent through the interview, though it appeared as more of an anxious smile than not. His mood was reserved. It was difficult to be clear how distressed he may be. There was no outward evidence of thought disorder. On cognitive exam, he was oriented x3 and alert. He was ambulatory. He walked with a slow measured gait. ASSESSMENT: Continue the current diagnosis. I discussed with the patient that at this point it does sound as if the main focus will be a family meeting, presumably with the patient's and also possibly his biologic daughter. There is a significant likelihood that he is showing psychotic symptoms. Precipitating factors are unclear. He does smoke marijuana. The patient indicated that he smokes marijuana "occasionally." On the other hand, his urine drug screen was positive for THC. We will focus on stabilization and discharge planning. LENNIE / YULIYAN: [id number] /
[2018-10-21 06:43] VITALS: BP 135/90; PULSE 114; TEMP 97.9
[2018-10-21] MEDS: NICOTINE 14MG/24HR PATCH TRANSDERM SCH (09:56)
--- NOTE | 2018-10-21 14:52 | P.DS ---
Providers Date of admission: 10/18/18 18:40 Expected date of discharge: 10/21/18 Attending physician: Alex Carias DO Consults: 10/18/18 18:06 Consult Physician Routine Consulting Provider: José Funez Consult Reason/Comments: psychosis, HTN Do you want consulting provider notified?: Yes Primary care physician: Jaylan Youngblood - Discharge Diagnosis(es) (1) Major depressive disorder Assessment: 53-year-old male past medical history of hypertension, previous alcohol abuse with history of cirrhosis of the liver presenting today as brought in by family for behavioral abnormalities. Family states the past 3 weeks patient has been very paranoid and has had bizarre conversations. The patient has been speaking of serpents, knocking on random doors. He has been speaking very religiously which is unlike the patient. They feel he is delusional. He tore of the carpeting in their home and set it in front of the home, they are unsure why he is doing these things. Today patient locked himself in the bathroom for 5 hours, prompting family to bring him to the ER. Pt did have episode of vomiting today. Patient has no complaints upon arrival, keenly responsive, alert oriented x3. HR 135 and BP elevated. Pt is cooperative, no signs of agitation. Family will petition patient for psychiatric evaluation/admission pending medical clearance. Family has noted significant weight loss in the past month. Family states patient has not had alcohol in the past year. Family states patient does have history of depression and has been on psychiatric medications the past however patient is noncompliant. Pt was brought into the hospital by police after family became concerned due to his irratic behavior. He was petitioned and certed. Pt was incoherent upon admit. Family states that he has not been acting like himself lately. He has been sitting in a chair with a gun in a holster, he ripped out good carpeting, he wanders at night, and is not able to communicate properly with his family. When they asked him to go to the hospital, he became resistive and they called the police. Family stated they were in fear of him and thought he was a harm to himself and others.pt does admit to having quite a few stresses in his life lately including deaths. He said he has not been sleeping much lately and he thinks that might be the problem lives with daughter and son in law. - Related Data Home Medications Medication Instructions Recorded Confirmed No Known Home Medications 10/18/18 10/18/18 Allergies Allergy/AdvReac Type Severity Reaction Status Date / Time No Known Allergies Allergy Verified 10/18/18 16:56 Past Medical History Past Medical History: Hypertension History of Any Multi-Drug Resistant Organisms: None Reported Past Surgical History: Orthopedic Surgery Past Psychological History: No Psychological Hx Reported Smoking Status: Current every day smoker Past Alcohol Use History: None Reported Past Drug Use History: Marijuana Musculoskeletal Examination - Abnormal/Involuntary Movements: [none Strength: [greater than antigravity (greater than/equal to 3/5) in all extremities Muscle Tone: [no impairment Gait: [grossly normal Station: [grossly normal : Mental Status Examination - General Appearance: [ casual, appears stated age Speech/Language: [spontaneous, soft Attitude/Behavior: [cooperative Mood: [ depressed, anxious, Affect: [full range Orientation: [time, person, place situation] Thought Content: [wnl Risk Factors: [denies suicidal (ideations, plan) Perception: [wnl, denies hallucinations (auditory, visual, tactile), other] Thought Processes: [goal-oriented Concentration/Attention Span: [wnl] [Per observation and interview with the patient] Recent Memory: [wnl] [ 3 out of 3 in 3 minutes] Remote Memory: [wnl] [past events, as related history] Intelligence: [ average] [based on history, based on vocabulary, syntax, grammar, and content] Judgement: [good] [per patient's behavior/history of present illness] Insight: [good] [understanding severity of illness/history of present illness] Admitting Diagnosis: [adjustment disorder] Current Visit: Yes Status: Acute Priority: Low Hospital Course: Plan of Care: [He was admitted on a formal voluntary admission to 3 [facility] for what appeared to be adjustment disorder due to skilled nursing and handling able to estate. He'll be evaluated by medicine, psychiatry, nursing staff, social work and occupational therapy and be integrat ed in tsai milieu. Environment. A family meeting will be scheduled to evaluate the dynamics of the home situation and possible stresses identifiers. I did not really meet criteria for involuntary and agreed for voluntary admission for evaluation.] Mental status examination at the time of discharge on 10/21/2018 at 12:51 PM: The patient presents alert, pleasant, and cooperative. There calmly seated without any agitated behavior. [He] reports that [his] mood is good. Affect is congruent and euthymic. [He] deny having any suicidal or homicidal ideation intent or plan. [He] denies any auditory or visual hallucinations. There is no evidence of any delusional thought content. [His] thought process is linear and goal-directed. [His] speech is fluent and nonpressured. [His] memory and concentration is grossly intact for the purposes of this session. Patient Condition at Discharge: Serious Plan - Discharge Summary Discharge Rx Participant: No New Discharge Prescriptions: Continue No Known Home Medications Discharge Medication List No Known Home Medications 10/18/18 [History] Follow up Appointment(s)/Referral(s): Jaylan Youngblood MD [Primary Care Provider] - 1-2 days Activity/Diet/Wound Care/Special Instructions: Activity and diet as tolerated. Avoid the use of street drugs and alcohol. Take all medications as prescribed. When you are in need of refills on your medications please contact your medical provider and/or outpatient psychiatrist to have this done. Please go to scheduled outpatient appointment for aftercare treatment. If symptoms return or become worse, call the crisis line at and/or go to the nearest emergency room for evaluation. In one week Schedule CT abdomen/pelvis with contrast and CT angio Chest Per Dr Funez. Script supplied. Discharge Disposition: HOME SELF-CARE
== END 2018-10-21 15:02 | disposition home or self-care (01) | DRG 881 ==
LOC: EC 14:22 → 3MHU 18:40
PROVIDERS: ADMIT Psychiatry & Neurology Psychiatry; ATTEND Psychiatry & Neurology Psychiatry
DX: F32.9 Major depressive disorder, single episode, unspecified (principal); E44.0 Moderate protein-calorie malnutrition; E87.2 Acidosis; Z68.1 Body mass index [BMI] 19.9 or less, adult; J43.9 Emphysema, unspecified; K74.60 Unspecified cirrhosis of liver; I10 Essential (primary) hypertension; F10.10 Alcohol abuse, uncomplicated; F43.20 Adjustment disorder, unspecified; F17.210 Nicotine dependence, cigarettes, uncomplicated; R00.0 Tachycardia, unspecified; Z91.19 Patient's noncompliance with other medical treatment and regimen; Z91.83 Wandering in diseases classified elsewhere
CPT/HCPCS: 36415; 70450; 71046; 80053; 80061; 80306; 81003; 82009; 82075; 82140; 82375; 82550; 82553; 83036; 83605; 83690; 84443; 84484; 85025; 85610; 85730; 93005; 96361; 96374; 96376; 99285

== ENCOUNTER → 2020-07-15 | Outpatient (CLI) | payer BC ==
--- NOTE | 2020-07-16 15:39 | MR ---
EXAMINATION TYPE: MR brain wo/w con DATE OF EXAM: 07/15/2020 COMPARISON: CT brain 10/18/2018 HISTORY: Unspecified disorder of adult personality and behavior. Memory issues. TECHNIQUE: Multiplanar, multisequence images of the brain and brainstem is performed without and with IV contras t, utilizing 5 mL intravenous Gadavist . FINDINGS: Diffusion weighted images demonstrate no evidence of a recent infarct or other diffusion ab normality. There is no extra-axial fluid collection. Periventricular confluent and scattered hyperi ntensities present on inversion recovery T2-weighted sequence, small foci of lacunar infarcts suspect ed in the periventricular white matter on the left The ventricular system and cisternal spaces are no rmal in size and appearance. The brain volume is age appropriate. Small scalp lesion is present in t he left frontal region towards the convexity, correlate measuring 9 mm anterior posterior dimension Midline structures demonstrate normal morphology. The craniocervical junction appears within normal limits. Post contrast images demonstrate no abnormal enhancement. The dural venous sinuses appear pa tent. The visualized sinuses are clear and the globes are intact. IMPRESSION: Probable chronic small vessel ischemia, age related atrophy
== END | disposition home or self-care (01) ==
LOC: RADMRIMAIN 07:56
PROVIDERS: ATTEND Family Medicine
DX: F69 Unspecified disorder of adult personality and behavior (principal)
CPT/HCPCS: 70553; A9585

== ENCOUNTER 2020-07-16 18:02 | Inpatient (IN) | payer BC ==
--- NOTE | 2020-07-16 18:12 | ED ---
General Adult HPI - General Stated complaint: Mental Health Time Seen by Provider: 07/16/20 18:04 Source: patient, EMS, RN notes reviewed Mode of arrival: EMS Limitations: no limitations - History of Present Illness Initial comments: This a 55-year-old male presents emergency Department with EMS for psychiatric evaluation. Patient was brought to emergency from earlier by police were patient left. He is not suicidal or homicidal. He does admit that he's been having some change in behavior and bizarre behavior is unsure why his primary care physician started him on some medications bleeding that he had schizophrenia. He has no history. Patient also had an MRI yesterday which was negative. They're concerned that his change in behavior was related to brain mass. There is no evidence of this. He denies any physical complaints including headaches, dizziness, chest pain, shortness breath, nausea vomiting he denies any alcohol or drug abuse. - Related Data Home Medications Medication Instructions Recorded Confirmed No Known Home Medications 10/18/18 10/18/18 Allergies Allergy/AdvReac Type Severity Reaction Status Date / Time No Known Allergies Allergy Verified 07/16/20 13:04 Review of Systems ROS Statement: Those systems with pertinent positive or pertinent negative responses have been documented in the HPI. ROS Other: All systems not noted in ROS Statement are negative. Past Medical History Past Medical History: COPD, Hypertension Additional Past Medical History / Comment(s): malnutrition and sinus tachycardia History of Any Multi-Drug Resistant Organisms: None Reported Past Surgical History: Orthopedic Surgery Past Anesthesia/Blood Transfusion Reactions: No Reported Reaction Past Psychological History: No Psychological Hx Reported Smoking Status: Former smoker Past Alcohol Use History: None Reported Past Drug Use History: Marijuana General Exam General appearance: alert, in no apparent distress Head exam: Present: atraumatic, normocephalic, normal inspection Eye exam: Present: normal appearance, PERRL, EOMI. Absent: scleral icterus, conjunctival injection, periorbital swelling ENT exam: Present: normal exam, normal oropharynx, mucous membranes moist Neck exam: Present: normal inspection, full ROM. Absent: tenderness, meningismus, lymphadenopathy Respiratory exam: Present: normal lung sounds bilaterally. Absent: respiratory distress, wheezes, rales, rhonchi, stridor Cardiovascular Exam: Present: regular rate, normal rhythm, normal heart sounds. Absent: systolic murmur, diastolic murmur, rubs, gallop, clicks GI/Abdominal exam: Present: soft, normal bowel sounds. Absent: distended, tenderness, guarding, rebound, rigid Neurological exam: Present: alert, oriented X3, CN II-XII intact Psychiatric exam: Present: anxious Skin exam: Present: warm, dry, intact, normal color. Absent: rash Course Vital Signs 07/16/20 07/16/20 18:22 19:36 Temperature 98.8 F Pulse Rate 105 H 85 Respiratory 18 18 Rate Blood Pressure 146/106 137/98 O2 Sat by Pulse 97 97 Oximetry Medical Decision Making - Lab Data Result diagrams: 07/17/20 07:11 07/17/20 07:11 Lab Results 07/16/20 07/16/20 Range/Units 18:40 19:43 Urine Opiates Screen Not Detected (NotDetected) Ur Oxycodone Screen Not Detected (NotDetected) Urine Methadone Screen Not Detected (NotDetected) Ur Propoxyphene Screen Not Detected (NotDetected) Ur Barbiturates Screen Not Detected (NotDetected) U Tricyclic Antidepress Not Detected (NotDetected) Ur Phencyclidine Scrn Not Detected (NotDetected) Ur Amphetamines Screen Not Detected (NotDetected) U Methamphetamines Scrn Not Detected (NotDetected) U Benzodiazepines Scrn Not Detected (NotDetected) Urine Cocaine Screen Not Detected (NotDetected) U Marijuana (THC) Screen Detected H (NotDetected) Coronavirus (PCR) Not Detected (Not Detectd) Disposition Clinical Impression: Acute psychosis, Schizophrenia Disposition: TRANSFER TO PSYCH HOSP/UNIT
[2020-07-16 19:06] LABS: Amphetamine Screen,Urine Not Detected (NotDetected); Barbiturate Screen,Urine Not Detected (NotDetected); Benzodiazepines Screen,Urine Not Detected (NotDetected); Cocaine Screen,Urine Not Detected (NotDetected); Methadone Screen, Urine Not Detected (NotDetected); Opiate Screen,Urine Not Detected (NotDetected); Oxycodone Screen, Urine Not Detected (NotDetected); Phencyclidine Screen,Urine Not Detected (NotDetected); Tricyclic Antidepressant,Urine Not Detected (NotDetected); Urn Cannabinoid Scrn Detected (NotDetected)
[2020-07-16] MEDS ORDERED: MAGNESIUM HYDROXIDE 2,400 MG/10 ML CUP PO PRN (20:34)
[2020-07-16] MEDS ORDERED: LORazepam 1 MG TAB PO PRN (20:34)
[2020-07-16] MEDS ORDERED: ACETAMINOPHEN TAB 325 MG TAB PO PRN (20:34)
[2020-07-16] MEDS ORDERED: MAG HYDROX/AL HYDROX/SIMETH 30 ML CUP PO PRN (20:34)
[2020-07-16] MEDS ORDERED: QUEtiapine 100 MG TAB PO ONE (20:47)
[2020-07-17 07:06] VITALS: PULSE 104; RESP 16
[2020-07-17 07:49] LABS: Basophils # (A) 0.1 k/uL (0-0.2); Basophils % (A) 1 %; Eosinophils # (A) 0.1 k/uL (0-0.7); Eosinophils % (A) 2 %; HCT 43.4 % (39.0-53.0); HGB 14.4 gm/dL (13.0-17.5); Lymphocytes # (A) 1.6 k/uL (1.0-4.8); Lymphocytes % (A) 28 %; MCH 30.5 pg (25.0-35.0); MCHC 33.1 g/dL (31.0-37.0); MCV 92.1 fL (80.0-100.0); Mean Platelet Volume 7.6; Monocytes # (A) 0.5 k/uL (0-1.0); Monocytes % (A) 9 %; Neutrophils # (A) 3.3 k/uL (1.3-7.7); Neutrophils % (A) 58 %; Platelet Count 282 k/uL (150-450); RBC 4.72 m/uL (4.30-5.90); RDW 12.3 % (11.5-15.5); WBC 5.7 k/uL (3.8-10.6)
[2020-07-17 08:19] LABS: Albumin 5.1 g/dL (3.5-5.0); Calcium 9.8 mg/dL (8.4-10.2); Total Bilirubin 1.8 mg/dL (0.2-1.3); Total Protein 8.4 g/dL (6.3-8.2)
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
[2020-07-17] MEDS: PALIPERIDONE 3 MG TAB.ER.24 PO SCH (12:50)
[2020-07-17 14:28] VITALS: BMI 18.7
[2020-07-17 14:45] LABS: Hemoglobin A1C 5.2 % (4.0-6.0)
[2020-07-17] MEDS ORDERED: MELATONIN 5 MG TABLET PO SCH (21:00)
--- NOTE | 2020-07-17 23:47 | P.CONS ---
History of Present Illness - History of Present Illness This is a pleasant 55 years old male with multiple medical problems including COPD and hypertension presents to the emergency room with signs symptoms of psychosis which could be secondary to cannabis abuse as per psychiatrist, who was admitted to the mental health unit and medical consult was requested for medical management. MRI of the brain done on 07/15/2020 for an unspecified disorder of adult personality and behavior showing probable chronic small vessel ischemia, age- related atrophy per Radiologist patient denies any specific symptoms, no headache or weakness or numbness, no blurred vision or difficulty talking. Gait is normal. He denies chest pain or dyspnea. No change in urine or bowel habits. No fever Labs including CBC, BMP and liver enzymes are unremarkable. Cholesterol is normal at 194, LDL is 106. TSH is normal at 1.3. Urine drug screen is positive for marijuana. Mcdaniel virus is not detected. He denies smoking or alcohol. He uses marijuana at times Review of Systems CONSTITUTIONAL: No fever, no malaise, no fatigue. HEENT: No recent visual problems or hearing problems. Denied any sore throat. CARDIOVASCULAR: No orthopnea, PND, no palpitations, no syncope. PULMONARY: No shortness of breath, no cough, no hemoptysis. GASTROINTESTINAL: No diarrhea, no nausea, no vomiting, no abdominal pain. Normoactive bowel sounds. NEUROLOGICAL: No headaches, no weakness, no numbness. HEMATOLOGICAL: Denies any bleeding or petechiae. GENITOURINARY: Denies any burning micturition, frequency, or urgency. MUSCULOSKELETAL/RHEUMATOLOGICAL: Denies any joint pain, swelling, or any muscle pain. ENDOCRINE: Denies any polyuria or polydipsia. Past Medical History Past Medical History: COPD, Hypertension Additional Past Medical History / Comment(s): malnutrition and sinus tachycardia History of Any Multi-Drug Resistant Organisms: None Reported Past Surgical History: Orthopedic Surgery Past Anesthesia/Blood Transfusion Reactions: No Reported Reaction Past Psychological History: No Psychological Hx Reported Smoking Status: Former smoker Past Alcohol Use History: None Reported Past Drug Use History: Marijuana Medications and Allergies Home Medications Medication Instructions Recorded Confirmed Type No Known Home Medications 10/18/18 10/18/18 History Allergies Allergy/AdvReac Type Severity Reaction Status Date / Time No Known Allergies Allergy Verified 07/16/20 13:04 Physical Exam Vitals: Vital Signs Temp Pulse Pulse Resp BP BP Pulse Ox 07/17/20 12:55 98.0 F 07/17/20 06:52 98.2 F 104 H 16 121/83 07/16/20 21:58 97.8 F 82 18 146/93 100 07/16/20 19:36 85 18 137/98 97 07/16/20 18:22 98.8 F 105 H 18 146/106 97 Intake and Output 07/17/20 07/17/20 07/17/20 06:59 14:59 22:59 Other: Weight 47.9 kg GENERAL: The patient is alert and oriented x3, not in any acute distress. Well developed, well nourished. HEENT: Pupils are round and equally reacting to light. EOMI. No scleral icterus. No conjunctival pallor. Normocephalic, atraumatic. No pharyngeal erythema. No thyromegaly. CARDIOVASCULAR: S1 and S2 present. No murmurs, rubs, or gallops. PULMONARY: Chest is clear to auscultation, no wheezing or crackles. ABDOMEN: Soft, nontender, nondistended, normoactive bowel sounds. No palpable organomegaly. MUSCULOSKELETAL: No joint swelling or deformity. EXTREMITIES: No cyanosis, clubbing, or pedal edema. NEUROLOGICAL: Gross neurological examination did not reveal any focal deficits. SKIN: No rashes. No petechiae Results CBC & Chem 7: 07/17/20 07:11 07/17/20 07:11 Labs: Abnormal Lab Results - Last 24 Hours (Table) 07/16/20 07/17/20 Range/Units 18:40 07:11 Chloride 97 L (98-107) mmol/L BUN 23 H (9-20) mg/dL Glucose 73 L (74-99) mg/dL Total Bilirubin 1.8 H (0.2-1.3) mg/dL Total Protein 8.4 H (6.3-8.2) g/dL Albumin 5.1 H (3.5-5.0) g/dL LDL Cholesterol, Calc 106 H (0-99) mg/dL HDL Cholesterol 66 H (40-60) mg/dL U Marijuana (THC) Screen Detected H (NotDetected) Assessment and Plan Assessment: -Psychosis and other psychiatric illnesses, management as per primary psych unit -Marijuana abuse, patient is counseled to quit -Hypertension continue same treatment, continue with diet therapy. Not on medication -COPD, not an active issue Patient is mobile and low risk for DVT We recommend patient follow up with PCP in one week after discharge and patient was instructed with the same Thank you for consulting us, we will see the patient on as-needed basis. Please feel free to contact us for any further questions
[2020-07-18 07:22] VITALS: BP 118/82
[2020-07-18] MEDS: PALIPERIDONE 3 MG TAB.ER.24 PO SCH (08:49)
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
[2020-07-18 12:46] VITALS: TEMP 98.1
== END 2020-07-18 15:13 | disposition home or self-care (01) | DRG 885 ==
LOC: EC 18:02 → 3MHU 20:33
PROVIDERS: ADMIT Psychiatry & Neurology Psychiatry; ATTEND Psychiatry & Neurology Psychiatry
DX: F29 Unspecified psychosis not due to a substance or known physiological condition (principal); F12.10 Cannabis abuse, uncomplicated; G47.00 Insomnia, unspecified; I10 Essential (primary) hypertension; J44.9 Chronic obstructive pulmonary disease, unspecified; Z87.891 Personal history of nicotine dependence; Z20.822 Contact with and (suspected) exposure to COVID-19
CPT/HCPCS: 80053; 80061; 80306; 82075; 83036; 84443; 85025; 87635; 99285

== ENCOUNTER 2020-07-18 17:44 | Inpatient (IN) | payer BC ==
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
[2020-07-18 20:31] LABS: Amphetamine Screen,Urine Not Detected (NotDetected); Barbiturate Screen,Urine Not Detected (NotDetected); Benzodiazepines Screen,Urine Not Detected (NotDetected); Cocaine Screen,Urine Not Detected (NotDetected); Methadone Screen, Urine Not Detected (NotDetected); Opiate Screen,Urine Not Detected (NotDetected); Oxycodone Screen, Urine Not Detected (NotDetected); Phencyclidine Screen,Urine Not Detected (NotDetected); Tricyclic Antidepressant,Urine Not Detected (NotDetected); Urn Cannabinoid Scrn Detected (NotDetected)
[2020-07-18] MEDS ORDERED: ACETAMINOPHEN TAB 325 MG TAB PO PRN (21:36)
[2020-07-18] MEDS ORDERED: LORazepam 1 MG TAB PO PRN (21:36)
[2020-07-18] MEDS ORDERED: MAGNESIUM HYDROXIDE 2,400 MG/10 ML CUP PO PRN (21:36)
[2020-07-18] MEDS ORDERED: MAG HYDROX/AL HYDROX/SIMETH 30 ML CUP PO PRN (21:36)
[2020-07-18] MEDS ORDERED: HALOPERIDOL LACTATE 5 MG/ML 1 ML VIAL IM PRN (21:38)
[2020-07-18] MEDS ORDERED: LORazepam 2 MG/ML INJ IM PRN (21:38)
[2020-07-18] MEDS: MELATONIN 5 MG TABLET PO SCH (21:51)
[2020-07-19 07:49] LABS: Basophils % (A) 0 %; Eosinophils # (A) 0.1 k/uL (0-0.7); Eosinophils % (A) 2 %; HCT 42.4 % (39.0-53.0); HGB 13.9 gm/dL (13.0-17.5); Lymphocytes # (A) 1.5 k/uL (1.0-4.8); Lymphocytes % (A) 20 %; MCH 30.5 pg (25.0-35.0); MCHC 32.9 g/dL (31.0-37.0); MCV 92.8 fL (80.0-100.0); Monocytes # (A) 0.5 k/uL (0-1.0); Monocytes % (A) 7 %; Neutrophils # (A) 4.9 k/uL (1.3-7.7); Neutrophils % (A) 69 %; Platelet Count 284 k/uL (150-450); RBC 4.57 m/uL (4.30-5.90); RDW 12.3 % (11.5-15.5); WBC 7.1 k/uL (3.8-10.6)
[2020-07-19 07:58] LABS: ALT 18 U/L (4-49); AST 37 U/L (17-59); African American GFR (CKD) >90 (>60 ml/min/1.73 sqM); Albumin 4.4 g/dL (3.5-5.0); Alkaline Phosphatase 58 U/L (38-126); Anion Gap 6 mmol/L; Blood Urea Nitrogen 18 mg/dL (9-20); Calcium 9.7 mg/dL (8.4-10.2); Carbon Dioxide 31 mmol/L (22-30); Chloride 103 mmol/L (98-107); Cholesterol 175 mg/dL (<200); Glucose 94 mg/dL (74-99); HDL Cholesterol 67 mg/dL (40-60); LDL Cholesterol,Calculated 87 mg/dL (0-99); Non-African American GFR(CKD) 81 (>60 ml/min/1.73 sqM); Potassium 4.2 mmol/L (3.5-5.1); Sodium 140 mmol/L (137-145); Total Protein 7.5 g/dL (6.3-8.2); Triglycerides 105 mg/dL (<150)
[2020-07-19] MEDS ORDERED: PALIPERIDONE 3 MG TAB.ER.24 PO SCH (09:00)
[2020-07-19] MEDS ORDERED: PALIPERIDONE 3 MG TAB.ER.24 PO STA (09:34)
--- NOTE | 2020-07-19 10:31 | P.HP ---
Psychiatric H&P - . H&P Date: 07/19/20 History & Physical: Allergies Allergy/AdvReac Type Severity Reaction Status Date / Time No Known Allergies Allergy Verified 07/16/20 13:04 Vital Signs Temp 98.2 F 07/19/20 06:48 Pulse 120 H 07/19/20 09:14 Resp 16 07/19/20 06:48 BP 161/88 07/19/20 09:14 Pulse Ox 100 07/18/20 19:00 Intake & Output 07/18/20 07/19/20 07/19/20 18:59 06:59 18:59 Weight 50.349 kg 49.442 kg Laboratory Last Values WBC 7.1 k/uL (3.8-10.6) 07/19/20 07:24 RBC 4.57 m/uL (4.30-5.90) 07/19/20 07:24 Hgb 13.9 gm/dL (13.0-17.5) 07/19/20 07:24 Hct 42.4 % (39.0-53.0) 07/19/20 07:24 MCV 92.8 fL (80.0-100.0) 07/19/20 07:24 MCH 30.5 pg (25.0-35.0) 07/19/20 07:24 MCHC 32.9 g/dL (31.0-37.0) 07/19/20 07:24 RDW 12.3 % (11.5-15.5) 07/19/20 07:24 Plt Count 284 k/uL (150-450) 07/19/20 07:24 MPV 8.0 07/19/20 07:24 Neutrophils % 69 % 07/19/20 07:24 Lymphocytes % 20 % 07/19/20 07:24 Monocytes % 7 % 07/19/20 07:24 Eosinophils % 2 % 07/19/20 07:24 Basophils % 0 % 07/19/20 07:24 Neutrophils # 4.9 k/uL (1.3-7.7) 07/19/20 07:24 Lymphocytes # 1.5 k/uL (1.0-4.8) 07/19/20 07:24 Monocytes # 0.5 k/uL (0-1.0) 07/19/20 07:24 Eosinophils # 0.1 k/uL (0-0.7) 07/19/20 07:24 Basophils # 0.0 k/uL (0-0.2) 07/19/20 07:24 Sodium 140 mmol/L (137-145) 07/19/20 07:24 Potassium 4.2 mmol/L (3.5-5.1) 07/19/20 07:24 Chloride 103 mmol/L (98-107) 07/19/20 07:24 Carbon Dioxide 31 mmol/L (22-30) H 07/19/20 07:24 Anion Gap 6 mmol/L 07/19/20 07:24 BUN 18 mg/dL (9-20) 07/19/20 07:24 Creatinine 1.02 mg/dL (0.66-1.25) 07/19/20 07:24 Est GFR (CKD-EPI)AfAm >90 (>60 ml/min/1.73 sqM) 07/19/20 07:24 Est GFR (CKD-EPI)NonAf 81 (>60 ml/min/1.73 sqM) 07/19/20 07:24 Glucose 94 mg/dL (74-99) 07/19/20 07:24 Calcium 9.7 mg/dL (8.4-10.2) 07/19/20 07:24 Total Bilirubin 1.0 mg/dL (0.2-1.3) 07/19/20 07:24 AST 37 U/L (17-59) 07/19/20 07:24 ALT 18 U/L (4-49) 07/19/20 07:24 Alkaline Phosphatase 58 U/L (38-126) 07/19/20 07:24 Total Protein 7.5 g/dL (6.3-8.2) 07/19/20 07:24 Albumin 4.4 g/dL (3.5-5.0) 07/19/20 07:24 Triglycerides 105 mg/dL (<150) 07/19/20 07:24 Cholesterol 175 mg/dL (<200) 07/19/20 07:24 LDL Cholesterol, Calc 87 mg/dL (0-99) 07/19/20 07:24 HDL Cholesterol 67 mg/dL (40-60) H 07/19/20 07:24 TSH 1.520 mIU/L (0.465-4.680) 07/19/20 07:24 Urine Opiates Screen Not Detected (NotDetected) 07/18/20 20:14 Ur Oxycodone Screen Not Detected (NotDetected) 07/18/20 20:14 Urine Methadone Screen Not Detected (NotDetected) 07/18/20 20:14 Ur Propoxyphene Screen Not Detected (NotDetected) 07/18/20 20:14 Ur Barbiturates Screen Not Detected (NotDetected) 07/18/20 20:14 U Tricyclic Antidepress Not Detected (NotDetected) 07/18/20 20:14 Ur Phencyclidine Scrn Not Detected (NotDetected) 07/18/20 20:14 Ur Amphetamines Screen Not Detected (NotDetected) 07/18/20 20:14 U Methamphetamines Scrn Not Detected (NotDetected) 07/18/20 20:14 U Benzodiazepines Scrn Not Detected (NotDetected) 07/18/20 20:14 Urine Cocaine Screen Not Detected (NotDetected) 07/18/20 20:14 U Marijuana (THC) Screen Detected (NotDetected) H 07/18/20 20:14 Coronavirus (PCR) Not Detected (Not Detectd) 07/18/20 20:05 07/19/20 10:18 IDENTIFYING DATA: Patient is a 55-year-old male who is currently , HPI: Patient presented to the hospital after being discharged from the mental health unit earlier that day. According to petition filled out by , patient apparently was acting impulsively and ran and collided with her intentionally in the home and was acting bizarre. Kasey stated over the phone [phone] to rfp writer that patient was acting paranoid and even attempted to jump out of the car while she was trying to take him to the hospital. She states that he also was yelling out to his neighbors and attempted to run away as she is never seen him run. Patient was on the unit for 2 days prior to coming into the hospital and was treated with paliperidone 3 mg daily and trazodone at nighttime for sleep. Patient was observed closely at that time and did not seem to be displaying any type of bizarre behavior or endorsing any type of delusions or paranoia and was discharged the next day. Patient was seen today by rfp writer in his room and agreeable to speak in the office. Patient continues to give vague statements about his thoughts and events that occurred. He answers many ques tions with "I don't know or no idea". He claims that he was feeling paranoid at home after he started smoking marijuana. He states that he gets his marijuana from his . He states that he believed his neighbors were watching him and he heard the dogs barking and was scared. He states that he ran into his and collided with her accidentally. He states that he smoked approximately "1-2 packs" after he left the hospital. Patient's UDS was positive for THC. Patient is currently denying any depression or anxiety. He is denying any racing thoughts. He is continuing to endorse paranoia and was responding to internal stimuli during the interview. Patient denies any suicidal or homicidal ideations intent or plan. At this time patient denies any auditory or visual hallucinations. Patient admits to using cannabis regularly however does not use any other recreational drugs cigarettes or alcohol. PAST PSYCHIATRIC HISTORY: Patient states that he has no psychiatric diagnosis. Patient was previously on olanzapine, paliperidone and melatonin. Patient was previously admitted to the mental health floor for 2 days and was just discharged yesterday. Patient denies any psychiatric outpatient follow-up. Patient follows up with his PCP Patient denies any history of suicide attempts in the past. PMH: COPD, hypertension ALLERGIES: as per EMR CHEMICAL DEPENDENCY HISTORY: as per HPI FAMILY PSYCHIATRIC/SUBSTANCE USE HISTORY: He states that his grandmother had dementia. SOCIAL HISTORY: Patient was born and raised in [place] [facility] [place] [address] and claims that he completed up to ninth grade in school. He states that he is currently and lives in a house has 1 kid and is currently retired. 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 MENTAL STATUS EXAM: General Appearance: Patient appears to be thin, stated age is alert, directable, and attempts to cooperate. Appears to be confused at times and responding to internal stimuli. Patient appears to have poor hygiene and grooming. Disheveled appearance. Long hair. Behavior: Patient is seated without any agitated behavior. Attempts to cooperate. Speech: Patient's speech is fluent and nonpressured. Monotone. Mood/Affect: Patient reports their mood is "ok", affect is congruent and constricted. Suicidality/Homicidality: Patient denies having any homicidal ideation intent or plan. Denies any suicidal ideations intent or plan Perceptions: Patient denies any visual hallucinations and denies any auditory hallucinations Though content/process: [place], poverty of content. Confused at times. Rambles. Memory and concentration: AOX3, fair abstraction. he knows who the current president is. Can spell "WORLD" backwards Judgment and insight: poor STRENGTHS/WEAKNESSES: strength is that patient is resilient. 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 Patient has signed medication consent and is placed in patient's chart. A second clinical certificate was completed and will be faxed to the courts. -Medications : Increased paliperidone 6 mg daily for psychosis. Continue with melatonin 5 mg daily at bedtime for insomnia. Added Depakote 250mg qhs for mood stabilization/aggression. -Ativan and Haldol PRN for agitation/aggression -Patient was counselled specifically on marijuana and its effect on patient's mental health and likely contributed to his significant symptoms, patient verbally understood and claims that he will avoid marijuana going forward. -Patient was informed of the risks, benefits and side effects of the medication and patient verbally consented to taking the medications. Patient signed med consent form and was placed in chart. -Internal Medicine consult to perform medical evaluation and physical. -NRT -not needed as patient does not smoke -SW on board for discharge planning. Encourage patient to participate in groups to work on coping skills. Distribution Collection Operator spoke with patient's , please see above for further details. Will await deferral and full court hearing date.
[2020-07-19 14:10] VITALS: BMI 18.7
[2020-07-19 16:39] LABS: Hemoglobin A1C 5.2 % (4.0-6.0)
[2020-07-19] MEDS: MELATONIN 5 MG TABLET PO SCH (21:16)
[2020-07-19] MEDS: DIVALPROEX ER 250 MG TAB.ER.24H PO SCH (21:17)
--- NOTE | 2020-07-19 22:40 | P.CONS ---
History of Present Illness - Reason for Consult Consult date: 07/19/20 Medical management Requesting physician: Dave Brice - Chief Complaint Psychosis - History of Present Illness Consultation: This is a 55-year-old patient who follows with Dr. Youngblood. She was admitted through a petition by the . As noted per the psychiatry admitting note "Patient presented to the hospital after being discharged from the mental health unit earlier that day. According to petition filled out by , patient apparently was acting impulsively and ran and collided with her intentionally in the home and was acting bizarre. Kasey stated over the phone [phone] to singer songwriter that patient was acting paranoid and even attempted to jump out of the car while she was trying to take him to the hospital. She states that he also was yelling out to his neighbors and attempted to run away as she is never seen him run. Patient was on the unit for 2 days prior to coming into the hospital and was treated with paliperidone 3 mg daily and trazodone at nighttime for sleep. Patient was observed closely at that time and did not seem to be displaying any type of bizarre behavior or endorsing any type of delusions or paranoia and was discharged the next day. Patient was seen today by singer songwriter in his room and agreeable to speak in the office. Patient continues to give vague statements about his thoughts and events that occurred. He answers many questions with "I don't know or no idea". He claims that he was feeling paranoid at home after he started smoking marijuana. He states that he gets his marijuana from his . He states that he believed his neighbors were watching him and he heard the dogs barking and was scared. He states that he ran into his and collided with her accidentally. He states that he smoked approximately "1-2 packs" after he left the hospital. Patient's UDS was positive for THC. Patient is currently denying any depression or anxiety. He is denying any racing thoughts. He is continuing to endorse paranoia and was responding to internal stimuli during the interview. Patient denies any suicidal or homicidal ideations intent or plan. At this time patient denies any auditory or visual hallucinations. Patient admits to using cannabis regularly however does not use any other recreational drugs cigarettes or alcohol." Patient states his appetite has been up and down. He had lost weight and is put on some weight again. Didn't have an appetite at home. Has been eating well here. Denies any abdominal pain. Sometimes constipated. No shortness of breath. Does smoke occasionally. Review of systems: GEN.: Sometimes decrease appetite EYES: None HEENT: None NECK: None RESPIRATORY: None CARDIOVASCULAR: None GASTROINTESTINAL: As above GENITOURINARY: None MUSCULOSKELETAL: None LYMPHATICS: None HEMATOLOGICAL: None PSYCHIATRY: As above NEUROLOGICAL: None Past medical history to include: COPD, hypertension, malnutrition Social history: Smokes occasionally. No alcohol. 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 . Family history: Reviewed, noncontributory to presentation Physical examination: VITAL SIGNS: 98.2, 98, 16, 105/66, 100% on room air GENERAL: [BMI 18.7, sitting up, comfortable. EYES: Pupils equal. Conjunctiva normal. HEENT: External appearance of nose and ears normal, oral cavity grossly normal. NECK: JVD not raised; masses not palpable. HEART: First and second heart sounds are normal; no edema. LUNGS: Respiratory rate normal; clear to auscultation. ABDOMEN: Soft, nontender, liver spleen not palpable, no masses palpable. PSYCH: [Answering questions l. NEUROLOGICAL: Cranial nerves grossly intact; no facial asymmetry, power and sensation grossly intact. LYMPHATICS: No lymph nodes palpable in the axilla and neck INVESTIGATIONS, reviewed in the clinical context: White count 7.1 hemoglobin 13.9 platelets 24 potassium 4.2 creatinine 1.02 LDL 87 TSH 1.5 Urine drug screen positive for marijuana Coronavirus-P/Cr-not detected Assessment: -This is a patient is a progressive weight loss and also state that is started putting on weight again. His appetite is good right now but not to put in the past. -Mild malnutrition from decreased oral intake Chronic nicotine dependence -Recreational marijuana use -Psychosis unspecified likely seconded to cannabis use as per psychiatry Plan: We'll consult dietitian. Get a computed tomography scan of the chest abdomen pelvis with contrast. Nicotine patch. Thank you Dr. Brice Past Medical History Past Medical History: COPD, Hypertension Additional Past Medical History / Comment(s): malnutrition and sinus tachycardia History of Any Multi-Drug Resistant Organisms: None Reported Past Surgical History: Orthopedic Surgery Past Anesthesia/Blood Transfusion Reactions: No Reported Reaction Past Psychological History: No Psychological Hx Reported Smoking Status: Former smoker Past Alcohol Use History: None Reported Past Drug Use History: Marijuana Medications and Allergies Home Medications Medication Instructions Recorded Confirmed Type Melatonin 5 mg PO HS 30 Days tablet 07/18/20 07/18/20 Rx Paliperidone [Invega] 3 mg PO DAILY 30 Days tab.er.24 07/18/20 07/18/20 Rx Allergies Allergy/AdvReac Type Severity Reaction Status Date / Time No Known Allergies Allergy Verified 07/16/20 13:04 Physical Exam Vitals: Vital Signs Temp Pulse Pulse Resp BP BP Pulse Ox 07/19/20 06:48 98.2 F 98 16 105/66 07/18/20 22:56 98.9 F 105 H 16 126/77 07/18/20 21:23 98.6 F 130 H 16 171/71 07/18/20 19:00 113 H 16 157/98 100 07/18/20 17:46 97.6 F 122 H 18 118/101 100 Intake and Output 07/18/20 07/19/20 07/19/20 22:59 06:59 14:59 Other: Weight 49.442 kg Results CBC & Chem 7: 07/19/20 07:24 07/19/20 07:24 Labs: Abnormal Lab Results - Last 24 Hours (Table) 07/18/20 07/19/20 Range/Units 20:14 07:24 Carbon Dioxide 31 H (22-30) mmol/L HDL Cholesterol 67 H (40-60) mg/dL U Marijuana (THC) Screen Detected H (NotDetected)
[2020-07-19] MEDS ORDERED: IOPAMIDOL CONTRAST (ORAL USE) VIAL PO PRN (23:00)
[2020-07-20 06:37] VITALS: RESP 18
[2020-07-20] MEDS: PALIPERIDONE 6 MG TAB.ER.24 PO SCH (09:11)
--- NOTE | 2020-07-20 10:01 | P.PN ---
Progress Note - Text Progress Note Date: 07/20/20 Interval History: Patient was seen lying in his bed this morning and was directable and agreeable to speak with keno writer / runner in the office. Patient appears to have mild improvement in his hygiene and grooming today. He states that he was feeling tired this morning on the medications however states that he is "still getting used to it". He claims that he has never been good at taking medications and continues to have minimal insight and judgment. When asked more about the events that occur prior to him coming into the hospital patient continues to state "I don't know" and claims that he was feeling scared at that time about his neighbors and did not intentionally do it. He states that he spoke with his yesterday very briefly who claims that "she wants me to get better". He is denying any depression or anxiety today. He states that he slept fairly last night. He claims that he has not been going to groups. At this time patient denies any suicidal or homical ideations, intent or plan. Patient denies any auditory, visual hallucinations. Patient is not endorsing any paranoia today. Patient denies any side effects from the medications and has been compliant with meds. Mental Status Exam: General Appearance: Patient appears to be thin, stated age is alert, directable, and superficial. Not responding to internal stimuli today. Patient appears to have mildly improving hygiene and grooming. Long hair. Behavior: Patient is seated without any agitated behavior. Superficial Speech: Patient's speech is fluent and nonpressured. Monotone. Mood/Affect: Patient reports their mood is "a bit better", affect is congruent and constricted. Suicidality/Homicidality: Patient denies having any homicidal ideation intent or plan. Denies any suicidal ideations intent or plan Perceptions: Patient denies any visual hallucinations and denies any auditory hallucinations Though content/process: [place], poverty of content. Confused at times. Rambles. Minimal insight and judgment. Memory and concentration: AOX3, fair abstraction. 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 Patient has signed adult voluntary form and medication consent and was placed in patient's chart. -Medications: Continue with paliperidone 6 mg daily for psychosis, Depakote 250 mg daily at bedtime for mood stabilization/aggression. Discontinued melatonin at this time is patient appears to be oversedated during the day and possibly oversleeping and nighttime. -When necessary Ativan and Haldol for agitation/aggression. -NRT - not needed as patient does not smoke -Continuing to encourage patient to avoid/abstain marijuana once he is discharged as this is most likely one of the precipitants. -SW on board for discharge planning. Encouraged the patient to participate in milieu. Deferral with cable placer set for 07/21/2020. This patient is doing mild and likely discharge after this.
[2020-07-20] MEDS: DIVALPROEX ER 250 MG TAB.ER.24H PO SCH (20:10)
--- NOTE | 2020-07-20 20:54 | P.EN ---
Computed tomography scan of the abdomen chest and pelvis will be scheduled for outpatient and and PCP will be informed.
[2020-07-21 06:31] VITALS: BP 136/82; PULSE 99; TEMP 97.9
[2020-07-21] MEDS: PALIPERIDONE 6 MG TAB.ER.24 PO SCH (08:53)
--- NOTE | 2020-07-21 09:35 | P.DS ---
Providers Date of admission: 07/18/20 21:19 Expected date of discharge: 07/21/20 Attending physician: Dave Brice MD Consults: 07/18/20 21:36 Consult Physician Routine Consulting Provider: José Funez Consult Reason/Comments: H&P and medical Do you want consulting provider notified?: Yes Primary care physician: Jaylan Youngblood - Discharge Diagnosis(es) (1) Unspecified psychosis Current Visit: Yes Status: Acute Priority: High (2) Cannabis abuse Current Visit: Yes Status: Acute Priority: Medium (3) History of alcohol abuse Current Visit: Yes Status: Acute Priority: Low Hospital Course: Admission HPI: Admission note was completed by tag writer "Patient is a 55-year-old male who is currently , Patient presented to the hospital after being discharged from the mental health unit earlier that day. According to petition filled out by , patient apparently was acting impulsively and ran and collided with her intentionally in the home and was acting bizarre. Kasey stated over the phone [phone] to tag writer that patient was acting paranoid and even attempted to jump out of the car while she was trying to take him to the hospital. She states that he also was yelling out to his neighbors and attempted to run away as she is never seen him run. Patient was on the unit for 2 days prior to coming into the hospital and was treated with paliperidone 3 mg daily and trazodone at nighttime for sleep. Patient was observed closely at that time and did not seem to be displaying any type of bizarre behavior or endorsing any type of delusions or paranoia and was discharged the next day. Patient was seen today by tag writer in his room and agreeable to speak in the office. Patient continues to give vague statements about his thoughts and events that occurred. He answers many questions with "I don't know or no idea". He claims that he was feeling paranoid at home after he started smoking marijuana. He states that he gets his marijuana from his . He states that he believed his neighbors were watching him and he heard the dogs barking and was scared. He states that he ran into his and collided with her accidentally. He states that he smoked approximately "1-2 packs" after he left the hospital. Patient's UDS was positive for THC. Patient is currently denying any depression or anxiety. He is denying any racing thoughts. He is continuing to endorse paranoia and was responding to internal stimuli during the interview. Patient denies any suicidal or homicidal ideations intent or plan. At this time patient denies any auditory or visual hallucinations. Patient admits to using cannabis regularly however does not use any other recreational drugs cigarettes or alcohol." Hospital course: Upon admission to the unit patient was initially confused and bizarre. Patient was however admitted involuntarily on a petition and clinical certificate, a second certificate was completed by tag writer and facts of the court. Patient ended up deferring and agreeing to treatment. Patient got along well with other patients on the unit and followed unit protocol. Patient was compliant with the medications and denied any side effects throughout hospital course. Patient was started on paliperidone and titrated up to a dose of 6 mg daily at bedtime for psychosis. Patient was also started on Depakote 250 mg daily at bedtime for mood stabilization/aggression. Patient spoke of his stressors and engaged in therapy both group and individual. Patient was also seen by medical team for history and physical exam. Throughout the course of the hospitalization patient gradually improved with regards to mood, anxiety, sleep and became more future oriented with improved insight and judgment. On the day of discharge patient denied any suicidal or homicidal ideations intent or plan denied any auditory or visual hallucinations. Patient endorsed wanting to live for his health and his family. The patient's claims that she had removed the guns and weapons from the house. Patient denied any paranoia and did not endorse any delusions. Patient does have a significant history of substance abuse and was counseled on abstaining from all substances including alcohol and marijuana. Patient elected to do outpatient substance use treatment program through [facility]. Patient acknowledged the severity and correlation of his marijuana use with the psychotic event and both patient and patient's were counseled on this and both agreed that patient will be abstaining from marijuana going forward. Patient was also counseled on the medications and need for regular compliance and was encouraged to follow-up with their outpatient appointment for mental health and also for primary care. Prior to discharge a family meeting will be arranged by social sciences department chair to answer any questions and ensure safety upon discharge. Mental status exam: General Appearance: Patient appears to be thin, stated age is alert, pleasant, and cooperative. Patient is in no acute distress and has improved hygiene and grooming. Long hair. Behavior: Patient is calmly seated without any agitated behavior. Speech: Patient's speech is fluent and nonpressured. Mood/Affect: Patient reports their mood is "better", affect is congruent Suicidality/Homicidality: Patient denies having any suicidal or homicidal ideation intent or plan. Perceptions: Patient denies any auditory or visual hallucinations. Though content/process: There is no evidence of any delusional thought content and thought process is linear and goal-directed. Memory and concentration: AOX3, grossly intact for the purposes of this session. Can spell "WORLD" backwards correctly. Judgment and insight: chronically poor, however has improved with guarded prognosis Impression: Psychosis unspecified, likely secondary to cannabis use Cannabis abuse History of alcohol abuse Plan: -Continue with discharge today as patient has improved and stabilized psychiatrically and is not currently an imminent threat to himself and/or others. Patient will remain at chronically elevated risk for harm to self and/or others due to his impulsivity and substance abuse. -Continue medications: Continue paliperidone 6 mg daily at bedtime for psychosis, Depakote 250 mg daily at bedtime for mood stabilization/aggression. -Patient was counseled on the need for medication compliance and appropriate follow-up at mental health and also primary care for medical issues. Patient verbalized understanding and agreed. -Social work to arrange for and conduct family meeting to ensure safety upon discharge and answer any questions/concerns. Timber Feller had a family meeting prior to discharge today with patient's over the phone and patient and discussed the importance of medication compliance, abstaining from marijuana and other recreational drugs and also importance of follow-up with his outpatient appointments. and patient verbally understood and agreed. Social work also to arrange for patients follow up appointments with [facility] for psychiatric care along with follow up with primary care provider. -Patient counseled on abstaining from recreational drugs and marijuana and alcohol. Was informed/educated on the adverse effects on their physical and mental health. Patient verbally agreed and understood. -Patient was instructed to return to the hospital or seek immediate medical care if their psychiatric or medical symptoms do worsen or reoccur. Allergies Allergy/AdvReac Type Severity Reaction Status Date / Time No Known Allergies Allergy Verified 07/16/20 13:04 Laboratory Results WBC 7.1 k/uL (3.8-10.6) 07/19/20 07:24 RBC 4.57 m/uL (4.30-5.90) 07/19/20 07:24 Hgb 13.9 gm/dL (13.0-17.5) 07/19/20 07:24 Hct 42.4 % (39.0-53.0) 07/19/20 07:24 MCV 92.8 fL (80.0-100.0) 07/19/20 07:24 MCH 30.5 pg (25.0-35.0) 07/19/20 07:24 MCHC 32.9 g/dL (31.0-37.0) 07/19/20 07:24 RDW 12.3 % (11.5-15.5) 07/19/20 07:24 Plt Count 284 k/uL (150-450) 07/19/20 07:24 MPV 8.0 07/19/20 07:24 Neutrophils % 69 % 07/19/20 07:24 Lymphocytes % 20 % 07/19/20 07:24 Monocytes % 7 % 07/19/20 07:24 Eosinophils % 2 % 07/19/20 07:24 Basophils % 0 % 07/19/20 07:24 Neutrophils # 4.9 k/uL (1.3-7.7) 07/19/20 07:24 Lymphocytes # 1.5 k/uL (1.0-4.8) 07/19/20 07:24 Monocytes # 0.5 k/uL (0-1.0) 07/19/20 07:24 Eosinophils # 0.1 k/uL (0-0.7) 07/19/20 07:24 Basophils # 0.0 k/uL (0-0.2) 07/19/20 07:24 Sodium 140 mmol/L (137-145) 07/19/20 07:24 Potassium 4.2 mmol/L (3.5-5.1) 07/19/20 07:24 Chloride 103 mmol/L (98-107) 07/19/20 07:24 Carbon Dioxide 31 mmol/L (22-30) H 07/19/20 07:24 Anion Gap 6 mmol/L 07/19/20 07:24 BUN 18 mg/dL (9-20) 07/19/20 07:24 Creatinine 1.02 mg/dL (0.66-1.25) 07/19/20 07:24 Est GFR (CKD-EPI)AfAm >90 (>60 ml/min/1.73 sqM) 07/19/20 07:24 Est GFR (CKD-EPI)NonAf 81 (>60 ml/min/1.73 sqM) 07/19/20 07:24 Glucose 94 mg/dL (74-99) 07/19/20 07:[address] Glu mg/dL 103 07/19/20 07:24 Hemoglobin A1c 5.2 % (4.0-6.0) 07/19/20 07:24 Calcium 9.7 mg/dL (8.4-10.2) 07/19/20 07:24 Total Bilirubin 1.0 mg/dL (0.2-1.3) 07/19/20 07:24 AST 37 U/L (17-59) 07/19/20 07:24 ALT 18 U/L (4-49) 07/19/20 07:24 Alkaline Phosphatase 58 U/L (38-126) 07/19/20 07:24 Total Protein 7.5 g/dL (6.3-8.2) 07/19/20 07:24 Albumin 4.4 g/dL (3.5-5.0) 07/19/20 07:24 Triglycerides 105 mg/dL (<150) 07/19/20 07:24 Cholesterol 175 mg/dL (<200) 07/19/20 07:24 LDL Cholesterol, Calc 87 mg/dL (0-99) 07/19/20 07:24 HDL Cholesterol 67 mg/dL (40-60) H 07/19/20 07:24 TSH 1.520 mIU/L (0.465-4.680) 07/19/20 07:24 Urine Opiates Screen Not Detected (NotDetected) 07/18/20 20:14 Ur Oxycodone Screen Not Detected (NotDetected) 07/18/20 20:14 Urine Methadone Screen Not Detected (NotDetected) 07/18/20 20:14 Ur Propoxyphene Screen Not Detected (NotDetected) 07/18/20 20:14 Ur Barbiturates Screen Not Detected (NotDetected) 07/18/20 20:14 U Tricyclic Antidepress Not Detected (NotDetected) 07/18/20 20:14 Ur Phencyclidine Scrn Not Detected (NotDetected) 07/18/20 20:14 Ur Amphetamines Screen Not Detected (NotDetected) 07/18/20 20:14 U Methamphetamines Scrn Not Detected (NotDetected) 07/18/20 20:14 U Benzodiazepines Scrn Not Detected (NotDetected) 07/18/20 20:14 Urine Cocaine Screen Not Detected (NotDetected) 07/18/20 20:14 U Marijuana (THC) Screen Detected (NotDetected) H 07/18/20 20:14 Coronavirus (PCR) Not Detected (Not Detectd) 07/18/20 20:05 Vital Signs Temp 97.9 F 07/21/20 06:12 Pulse 99 07/21/20 06:12 Resp 18 07/20/20 06:13 BP 136/82 07/21/20 06:12 Pulse Ox 100 07/18/20 19:00 Patient Condition at Discharge: Stable Plan - Discharge Summary New Discharge Prescriptions: New Divalproex ER [Depakote ER] 250 mg PO HS 30 Days tab.er.24h Paliperidone [Invega] 6 mg PO DAILY 30 Days tab.er.24 Discontinued Paliperidone [Invega] 3 mg PO DAILY 30 Days tab.er.24 Melatonin 5 mg PO HS 30 Days tablet Discharge Medication List Divalproex ER [Depakote ER] 250 mg PO HS 30 Days tab.er.24h 07/21/20 [Rx] Paliperidone [Invega] 6 mg PO DAILY 30 Days tab.er.24 07/21/20 [Rx] Follow up Appointment(s)/Referral(s): Jaylan Youngblood MD [Primary Care Provider] - 1-2 days Activity/Diet/Wound Care/Special Instructions: Schedule outpatient computed tomography scan of the chest abdomen and pelvis with contrast before discharge. Inform . And send a copy of request to the PCP. Activity and diet as tolerated. Avoid the use of street drugs and alcohol. Take all medications as prescribed. When you are in need of refills on your medications please contact your medical provider and/or outpatient psychiatrist to have this done. Please go to scheduled outpatient appointment for aftercare treatment. If symptoms return or become worse, call the crisis line at and/or go to the nearest emergency room for evaluation. Discharge Disposition: HOME SELF-CARE
== END 2020-07-21 13:22 | disposition home or self-care (01) | DRG 885 ==
LOC: EC 17:44 → 3MHU 21:19
PROVIDERS: ADMIT Psychiatry & Neurology Psychiatry; ATTEND Psychiatry & Neurology Psychiatry
DX: F23 Brief psychotic disorder (principal); E44.1 Mild protein-calorie malnutrition; F12.10 Cannabis abuse, uncomplicated; F17.200 Nicotine dependence, unspecified, uncomplicated; F41.9 Anxiety disorder, unspecified; I10 Essential (primary) hypertension; J44.9 Chronic obstructive pulmonary disease, unspecified; Z79.899 Other long term (current) drug therapy; Z20.822 Contact with and (suspected) exposure to COVID-19
CPT/HCPCS: 80053; 80061; 80306; 82075; 83036; 84443; 85025; 87635; 99285

== ENCOUNTER → 2020-08-11 | Outpatient (CLI) | payer BC ==
--- NOTE | 2020-08-11 11:51 | US ---
EXAMINATION TYPE: US liver DATE OF EXAM: 08/11/2020 COMPARISON: NONE CLINICAL HISTORY: R74.01 elevated liver ensymes. EXAM MEASUREMENTS: Liver Length: 11.9 cm Gallbladder Wall: 0.3 cm CBD: 0.4 cm Right Kidney: 9.8 x 3.7 x 4.3 cm Pancreas: visualized portions wnl Liver: wnl Gallbladder: 2 large stones with shadowing Evidence for sonographic Pires's sign: No CBD: wnl Right Kidney: No hydronephrosis or masses seen IMPRESSION: Cholelithiasis.
== END | disposition home or self-care (01) ==
LOC: RADUSWWP 10:58
PROVIDERS: ATTEND Family Medicine
DX: K80.20 Calculus of gallbladder without cholecystitis without obstruction (principal)
CPT/HCPCS: 76705

== ENCOUNTER → 2021-12-10 | Outpatient (CLI) | payer BC ==
--- NOTE | 2021-12-10 09:08 | CTL ---
EXAMINATION TYPE: CT Low Dose Lung DATE OF EXAM ORDERED: 12/10/2021 HISTORY: Nicotine dependence. Lung cancer screening CT DLP: 34.[address] CTDI: 0.8 mGy Automated exposure control for dose reduction was used. SCREENING VISIT: Baseline COMPARISON: No previous CT scan is available for comparison. TECHNIQUE: Low dose computed tomography scan was performed through the chest at 1 mm thick sections a nd reconstructed images in multiple planes at 1 mm and [address] DIAGNOSTIC QUALITY: Satisfactory FINDINGS: LUNG NODULES: None. LUNGS: COPD: Severity: Moderate Fibrosis: Severity: Mild Lymph nodes: No pathologically enlarged lymph nodes Other findings: Bronchial wall thickening which can be seen in cases of chronic bronchitis. Short seg ments of bronchial impaction seen scattered in the lungs. Diffuse wall thickening of the bronchial wa lls in the right upper lobe (best appreciated in image #25, series 11), likely inflammatory/infectiou s in etiology. RIGHT PLEURAL SPACE: Effusion: None Calcification: None Thickening: None Pneumothorax: None LEFT PLEURAL SPACE: Effusion: None Calcification: None Thickening: None Pneumothorax: None HEART: Heart Size: Normal Coronary Calcification: None Pericardial Effusion: Small pericardial fluid OTHER FINDINGS: Upper abdomen: 2 splenic cysts measuring 3.2 and 4.1 cm respectively. They were not appreciated in [address] abdomen[address] Recommend further CT or ultrasound assessment. Bony thorax: No aggressive bone lesion. Supraclavicular region: None Other: Minimal aortic atherosclerotic calcifications. IMPRESSION: COPD as detailed above. Focal bronchial wall thickening at the lateral aspect of the righ t upper lobe as described above, likely inflammatory/infectious in etiology. A precautionary follow-u p CT scan in 3 months can be considered. No definite lung nodule or suspicious lesion otherwise. Sple sivakumar cysts, not appreciated in 2013 CT scan, for further ultrasound/abdominal CT assessment. Incidenta l findings as described above. CT LUNG RAD AND CT CHEST RECOMMENDATION: Lung-Rad 2 Benign Appearance or Behavior: Continue annual sc reening with LDCT in 12 months. S Modifier (other clinically significant findings): As above.
== END | disposition home or self-care (01) ==
LOC: RADCTMAIN 07:32
PROVIDERS: ATTEND Family Medicine
DX: Z12.2 Encounter for screening for malignant neoplasm of respiratory organs (principal); Z87.891 Personal history of nicotine dependence
CPT/HCPCS: 71271

== ENCOUNTER → 2023-07-11 | Outpatient (CLI) | payer BC | END | disposition home or self-care (01) | LOC: LABWHC1 10:25 | PROVIDERS: ATTEND Internal Medicine | DX: E88.01 Alpha-1-antitrypsin deficiency (principal) | CPT/HCPCS: 36415; 82784 ==

== ENCOUNTER → 2024-05-21 | Outpatient (CLI) | payer BC | END | disposition home or self-care (01) | LOC: LABWHC1 12:03 | PROVIDERS: ATTEND Internal Medicine | DX: J44.9 Chronic obstructive pulmonary disease, unspecified (principal); E88.01 Alpha-1-antitrypsin deficiency | CPT/HCPCS: 36415; 82103 ==